=== PATIENT | male | born 1935 | race Caucasian/White ===

== ENCOUNTER 2023-05-19 07:59 | Outpatient (AMB) | payer OTHER, SELFPAY ==
--- NOTE | 2023-05-19 08:04 | MHC.OFFWIV ---
Intake Vital Signs 05/19/23 08:07 BP 150/100 H Blood Pressure Location Lt brachial Position Sitting Pulse 91 Pulse Source Pulse Oximeter Temp 98.4 F Temp Source Temporal Artery Scan Pulse Oximetry (%) 96 Oxygen Delivery Method Room Air Intake Visit Reasons: EST/left ankle sore Intake Note: Patient here for left ankle sore which started about 4 days ago. Pt states it was leaking but daughter put some ointment on it. Patient Tobacco Use Status: Never used Tobacco Allergies No Known Allergies [No Known Allergies*] Allergy (Unverified 05/19/23 08:38) lisinopril Allergy (Unknown, Uncoded 05/19/23 08:38) skin rash Do you need a note to return to daycare/school/sports/work: No HPI EST/left ankle sore HPI Details 87-year-old male presents to the office for a sick visit. Patient reports swelling in the left leg with leaking. He has not seen his primary care provider in 3 years. He reports constant swelling and leaking the left leg for the past 3 months. Occasional discomfort. No fevers or chills. PFSH Social History Patient Tobacco Use Status: Never used Tobacco Physical Exam Vital Signs: Last Vital Signs Temp 98.4 F 05/19/23 08:07 Pulse 91 05/19/23 08:07 BP 150/100 H 05/19/23 08:07 Pulse Ox 96 05/19/23 08:07 Oxygen Delivery Method Room Air 05/19/23 08:07 Const General: cooperative and healthy appearing Nutritional Appearance: well nourished Orientation/consciousness: patient oriented x3 Limitations: no limitations HEENT Head: Yes normal to inspection Eyes General: appearance normal, both eyes and all related structures Neck Neck: Yes normal visual inspection Chest Chest palpation & inspection: normal palpation of entire chest wall Resp Effort & Inspection: normal respiratory effort Neuro General: patient oriented x3 Extrem Other: Left leg lower: weeping lesions on the side of the leg, minimal erythema. Assessment & Plan Assessment & Plan (1) Cellulitis, leg: Code(s): L03.119 - Cellulitis of unspecified part of limb Plan: Antibiotics called in. Keep the leg elevated. Elevated blood pressure noted. Patient was encouraged to see the primary care provider. Coding Level of Care Code Est Pt Level 3 (88137) Diagnoses Cellulitis, leg L03.119
[2023-05-19 08:07] VITALS: BP 150/100; PULSE 91; TEMP 36.9; O2SAT 96
== END 2023-05-19 09:28 | disposition home or self-care (01) ==
PROVIDERS: PCP Nurse Practitioner Family; Visit Provider Internal Medicine
DX: L03.119 Cellulitis of unspecified part of limb (principal)
CPT/HCPCS: 99213

== ENCOUNTER 2023-06-04 08:20 | Emergency (ER) | payer OTHER, SELFPAY ==
--- NOTE | ~2023-06-04 | US_ITS ---
EXAMINATION: US VENOUS ULTRASOUND WITH DOPPLER LOWER EXTREMITY, BILATERAL CLINICAL INFORMATION: Lower extremity swelling. COMPARISON: None available. TECHNIQUE: Ultrasound of the deep veins is performed from the hip to the calf with compression sonography and color and pulse Doppler assessment. Spectral analysis with color-flow imaging is performed. There is some limitation at several levels secondary to the patient's inability to tolerate compression. FINDINGS: RIGHT: There is normal venous compression and respiratory variation and augmented flow. The visualized common femoral vein, superficial femoral vein, profunda femoral vein, popliteal vein, and the trifurcation region shows no evidence of deep venous thrombosis. There is no significant popliteal fossa cyst. Mild subcutaneous edema in the calf. LEFT: There is normal venous compression and respiratory variation and augmented flow. The visualized common femoral vein, superficial femoral vein, profunda femoral vein, popliteal vein, and the trifurcation region shows no evidence of deep venous thrombosis. There is no significant popliteal fossa cyst. Mild subcutaneous edema in the calf. If the patient's symptoms persist, followup ultrasound in 5 days 7 days might be of value to exclude proximal propagation from a non-visualized calf vein. US/US venous duplex LE BI IMPRESSION: No evidence for deep venous thrombosis in the visualized veins of the bilateral lower extremities.
--- NOTE | ~2023-06-04 | XR_ITS ---
EXAMINATION: XR CHEST CLINICAL INFORMATION: Leg swelling. COMPARISON: 03/19/2019 chest radiographs. TECHNIQUE: 2 views of the chest were obtained. FINDINGS: Mild to moderate elevation of the right hemidiaphragm. The lungs are clear. There are no pleural effusions. The heart and mediastinal structures are unremarkable. XR/XR chest 2V IMPRESSION: No acute cardiopulmonary process.
[2023-06-04 08:21] VITALS: BP 185/86; PULSE 98; RESP 18; TEMP 36.7; O2SAT 93; BMI 31.5
--- NOTE | 2023-06-04 09:36 | ECG_ITS ---
Test Reason : Dizzziness Blood Pressure : / mmHG Vent. Rate : 084 BPM Atrial Rate : 084 BPM P-R Int : 194 ms QRS Dur : 074 ms QT Int : 376 ms P-R-T Axes : 049 -10 047 degrees QTc Int : 444 ms Normal sinus rhythm Nonspecific ST and T wave abnormality Abnormal ECG When compared with ECG of 02-DEC-2013 07:28, No significant change was found Referred By: Johanne Vaz Electronically Signed By:GISELE HUSAIN
--- NOTE | 2023-06-04 09:38 | ED_ITS ---
HPI - General Adult General Chief complaint: Dizziness Stated complaint: Dizzy Low Blood Pressure Time Seen by Provider: 06/04/23 08:55 Source: patient Mode of arrival: ambulatory Limitations: no limitations History of Present Illness HPI narrative: 87-year-old male with a history of hypertension presents the ER with multiple complaints. Her patient and his the patient has not seen a primary care doctor and over 8 years. He has had complaints of lower extremity swelling for several weeks. He had a wound on the left lower extremity and went to urgent care and was placed on 7 days of Bactrim. Patient completed the course of Bactrim and does feel like the wound has improved. He still does have bilateral lower extremity swelling left greater than right. Patient also feels lightheaded and dizzy when he changes positions over the last few weeks. None at rest. Patient reports some shortness of breath with moving around but none with lying flat or at night time. Intermittent cough. No chest pain, fevers, chills. Has initial appt with new PCP in september Related Data Home Medications Medication Instructions Recorded Confirmed aspirin 81 mg tablet,delayed 81 mg PO DAILY 05/19/23 release (Adult Low Dose Aspirin) Previous Rx's Medication Instructions Recorded irbesartan 150 1 tab PO DAILY #90 tabs 04/26/21 mg-hydrochlorothiazide 12.5 mg tablet sulfamethoxazole 800 1 tab PO BID 7 days #14 tabs 05/19/23 mg-trimethoprim 160 mg tablet (Bactrim DS) irbesartan 150 1 tab PO DAILY #30 tabs 06/04/23 mg-hydrochlorothiazide 12.5 mg tablet Allergies Allergy/AdvReac Type Severity Reaction Status Date / Time No Known Allergies Allergy Unverified 05/19/23 08:38 [No Known Allergies*] lisinopril Allergy Unknown skin rash Uncoded 05/19/23 08:38 Review of Systems Review of Systems: Yes all other systems are reviewed and are negative Constitutional: Constitutional: Reports no additional constitutional complaints, Denies body ache(s), Denies chills, Denies fever(s), Denies headache(s) and Denies weakness Eyes: Eyes: Reports no additional eye complaints and Denies change in vision ENT: Reports system reviewed and no additional complaints, except as documented, Reports dizziness, Denies headache(s), Denies nasal congestion, Denies nasal discharge and Denies neck pain Cardiovascular: Cardiovascular: Reports no additional cardiovascular complaints, Denies chest pain, Reports leg edema and Reports dyspnea Respiratory: Respiratory: Reports no additional respiratory complaints, Denies cough and Reports dyspnea Gastrointestinal: Gastrointestinal: Reports no additional gastrointestinal complaints, Denies abdominal pain, Denies diarrhea, Denies nausea and Denies vomiting Genitourinary: Genitourinary: Denies urinary incontinence Musculoskeletal: Musculoskeletal: Reports no additional musculoskeletal complaints, Denies back pain, Denies arthralgias, Denies joint swelling, Denies neck pain, Denies numbness and Denies tingling Integumentary/Breasts: Skin/Breast: Reports system reviewed and no additional complaints, except as docu and Denies rash Neurologic: Reports system reviewed and no additional complaints, except as documented, Reports dizziness, Denies headache(s), Denies numbness, Denies tingling and Denies weakness PMFSH Past Medical History Attestation statement: The following information was validated with the patient. Source: old records reviewed and nursing notes reviewed Social History Social History Patient Tobacco Use Status: Never used Tobacco Smoked in Last 30 Days: No Use of substances other than those prescribed or required for medical reasons: No Advance Directives: No Advance Directives Information Provided: No Physical Exam ED Vital Signs: Vital Signs - 24 hr 06/04/23 08:21 06/04/23 10:13 06/04/23 10:14 Temperature 98.0 F Pulse Rate 98 78 78 Respiratory Rate 18 18 Blood Pressure 185/86 H 173/88 H 175/89 H Pulse Oximetry 93 94 Oxygen Delivery Method Room Air Room Air 06/04/23 10:15 06/04/23 10:17 Temperature Pulse Rate 82 84 Respiratory Rate Blood Pressure 178/84 H 179/82 H Pulse Oximetry Oxygen Delivery Method BMI result Body Mass Index 31.5 Const General: cooperative, healthy appearing, comfortable and no acute distress Orientation/consciousness: patient oriented x3 Limitations: no limitations HENMT Head: Yes normal to inspection Ears: hearing grossly normal bilaterally Eyes General: appearance normal, both eyes and all related structures Pupils: Equal, round and reactive pupils present Neck Neck: Yes normal visual inspection and Yes full ROM Chest Chest palpation & inspection: normal inspection of the chest Resp Effort & Inspection: normal respiratory effort Auscultation: clear to auscultation bilaterally Cardio Rate: regular rate Rhythm: regular rhythm Peripheral pulses: Peripheral pulses 2+ throughout GI Inspection: Yes normal to inspection Palpation (GI): Soft to palpation and nontender Back/Spine/Pelvis Thoracic/Lumbar Spine: thoracic and lumbar spine normal to inspection Skin General skin exam: no rashes or lesions noted Neuro General: patient oriented x3, moves all extremities and Unable to assess gait Cranial nerves: Yes Equal, round and reactive pupils present, Yes Normal facial strength present and Yes Midline tongue present Cognition (Neuro): normal cognition Gait exam (Neuro): Unable to assess gait Motor exam (neuro): 5/5 motor strength present throughout Sensory Exam: Normal double simultaneous stimulation for sensation Coordination: [id number] test normal and [id number] test normal Extrem Other: Has bilateral lower extremity pitting edema left greater than right. He has normal DP and PT pulses on palpation. Normal sensation. He has chronic skin changes likely secondary to chronic venous insufficiency. He has a healed ulceration to the left lower lateral extremity Course Course Course Narrative: Labs are unremarkable. Venous ultrasound shows no signs of DVT. Chest x-ray shows no signs of fluid overload. Patient likely has chronic venous insufficiency. Patient can elevate his lower legs and use compression stockings at home. His orthostatic vital signs were negative. His neurological exam is nonfocal and patient is ambulatory at baseline. Low concern for ICH, cerebellar infarct. Case management did see the patient and they will be assisting the patient in the status tse a primary care doctor outpatient. Patient will be discharged home. I will give him 1 refill for his blood pressure medication. Did review worrisome signs and symptoms of when to return to the emergency room. Comf ortable plan for discharge home. Medical Decision Making Medical Decision Making [facility] Narrative: 87-year-old male with a reported history of hypertension has not seen a primary care doctor and more than 9 years presents the ER with several weeks of bilateral lower extremity swelling, shortness of breath, feeling dizzy and lightheaded with position changes. On exam patient is alert oriented. Normal neurological exam with no focal deficits. Patient has bilateral lower extremity swelling left greater than right with chronic skin changes likely secondary to chronic venous insufficiency. Healed ulceration seen the left lateral lower extremity. Lungs are clear. Will check labs, chest x-ray, EKG, venous ultrasound, orthostatic vital signs Differential Diagnosis Differential Diagnoses: The differential diagnosis associated with the presentation includes Orthostatic hypotension Dehydration Congestive heart failure DVT Venous insufficiency Lab Data MDM Lab Attestation statement: I reviewed the patient's lab results. Reviewed labs which are unremarkable 06/04/23 09:54 06/04/23 09:54 Labs: Lab Results 06/04/23 06/04/23 06/04/23 Range/Units 09:54 09:54 09:54 WBC 6.6 (4.8-10.8) X10*3/uL RBC 4.69 (4.60-5.80) X10*6/uL Hgb 14.0 (14.0-18.0) g/dl Hct 42.3 (42.0-52.0) % MCV 90.2 (80.0-98.0) fL MCH 29.9 (27.0-33.0) pg MCHC 33.1 (31.0-36.0) g/dl RDW 13.3 (11.0-16.0) % Plt Count 159 L (160-400) X10*3/uL MPV 9.1 L (9.4-12.4) fL Immature Gran % (Auto) 0.9 H (0.0-0.4) % Neut % (Auto) 64.3 (45-73) % Lymph % (Auto) 24.1 (20-40) % Graves % (Auto) 9.3 (2-11) % Eos % (Auto) 1.1 (0-4) % Baso % (Auto) 0.3 (0-2) % Lymph # (Auto) 1.6 (1.2-4.9) X10*3/uL Graves # (Auto) 0.6 (0.1-1.2) X10*3/uL Eos # (Auto) 0.1 (0.0-0.4) X10*3/uL Baso # (Auto) 0.0 (0.0-0.2) X10*3/uL Abs Immat Gran (auto) 0.06 H (0.00-0.03) X10*3/uL Absolute Neuts (auto) 4.2 (2.0-8.3) x10*3/uL Absolute Nucleated RBC 0.000 (0.0-0.012) X10*3/uL Nucleated RBC % (auto) 0.0 (0.0-0.2) /100WBC PT 11.3 (11.1-13.3) SEC INR 0.9 (0.9-1.1) Sodium 144 (135-145) mmol/L Potassium 4.0 (3.3-5.1) mmol/L Chloride 110 H (96-108) mmol/L Carbon Dioxide 26 (22-29) mmol/L Anion Gap 12 (12-20) BUN 28 H (9-16) mg/dL Creatinine 1.04 (0.5-1.4) mg/dL Estim Creat Clear Calc 58.4 Estimated GFR > 60 Random Glucose 110 (60-115) mg/dL Calcium 9.4 (8.4-10.2) mg/dL Magnesium 1.9 (1.6-2.6) mg/dL Total Bilirubin 0.4 (0.0-1.0) mg/dL Direct Bilirubin 0.1 (0.0-0.5) mg/dL AST 15 (5-37) U/L ALT 18 (0-40) U/L Alkaline Phosphatase 72 (39-117) U/L Troponin I High Sens (<3.5-35.0) ng/L B-Natriuretic Peptide (<100) pg/mL Total Protein 6.5 (6.5-8.0) g/dL Albumin 3.9 (3.5-5.0) g/dL Urine Color Urine Appearance Urine pH (5.0-9.0) Ur Specific Keeler (1.005-1.025) Urine Protein (Neg-Trace) mg/dL Urine Glucose (UA) (Negative) mg/dL Urine Ketones (Negative) mg/dL Urine Blood (Negative) Urine Nitrite (Negative) Ur Leukocyte Esterase (Negative) 06/04/23 06/04/23 06/04/23 Range/Units 09:54 09:54 11:00 WBC (4.8-10.8) X10*3/uL RBC (4.60-5.80) X10*6/uL Hgb (14.0-18.0) g/dl Hct (42.0-52.0) % MCV (80.0-98.0) fL MCH (27.0-33.0) pg MCHC (31.0-36.0) g/dl RDW (11.0-16.0) % Plt Count (160-400) X10*3/uL MPV (9.4-12.4) fL Immature Gran % (Auto) (0.0-0.4) % Neut % (Auto) (45-73) % Lymph % (Auto) (20-40) % Graves % (Auto) (2-11) % Eos % (Auto) (0-4) % Baso % (Auto) (0-2) % Lymph # (Auto) (1.2-4.9) X10*3/uL Graves # (Auto) (0.1-1.2) X10*3/uL Eos # (Auto) (0.0-0.4) X10*3/uL Baso # (Auto) (0.0-0.2) X10*3/uL Abs Immat Gran (auto) (0.00-0.03) X10*3/uL Absolute Neuts (auto) (2.0-8.3) x10*3/uL Absolute Nucleated RBC (0.0-0.012) X10*3/uL Nucleated RBC % (auto) (0.0-0.2) /100WBC PT (11.1-13.3) SEC INR (0.9-1.1) Sodium (135-145) mmol/L Potassium (3.3-5.1) mmol/L Chloride (96-108) mmol/L Carbon Dioxide (22-29) mmol/L Anion Gap (12-20) BUN (9-16) mg/dL Creatinine (0.5-1.4) mg/dL Estim Creat Clear Calc Estimated GFR Random Glucose (60-115) mg/dL Calcium (8.4-10.2) mg/dL Magnesium (1.6-2.6) mg/dL Total Bilirubin (0.0-1.0) mg/dL Direct Bilirubin (0.0-0.5) mg/dL AST (5-37) U/L ALT (0-40) U/L Alkaline Phosphatase (39-117) U/L Troponin I High Sens 13.7 (<3.5-35.0) ng/L B-Natriuretic Peptide 62 (<100) pg/mL Total Protein (6.5-8.0) g/dL Albumin (3.5-5.0) g/dL Urine Color Yellow Urine Appearance Clear Urine pH 6.5 (5.0-9.0) Ur Specific Keeler 1.020 (1.005-1.025) Urine Protein Trace (Neg-Trace) mg/dL Urine Glucose (UA) Negative (Negative) mg/dL Urine Ketones Negative (Negative) mg/dL Urine Blood Negative (Negative) Urine Nitrite Negative (Negative) Ur Leukocyte Esterase Negative (Negative) Independent Interpretation I performed an independent interpretation of an: EKG, Plain X-Ray and Ultrasound Interpretation: I independently reviewed EKG was no some a sinus rhythm with a rate of 84, normal NC, nonspecific ST changes I independently reviewed the chest x-ray and ultrasound and agree with the Radiology report Radiology Impression Discussion of test interpretation with radiology: I have reviewed the radiologis t's reading. Radiologist Impression: [address] [address] XRay Report Signed Patient: Jesus Alberto Godinez MR#: [id number] : 1935 Acct:[id number] Age/Sex: 87 / M ADM Date: 06/04/23 Loc: .ED Attending Dr: Ordering Physician: Johanne Silva NP Date of Service: 06/04/23 Procedure(s): XR chest 2V Accession Number(s): [id number] cc: Johanne Silva NP~ EXAMINATION: XR CHEST CLINICAL INFORMATION: Leg swelling. COMPARISON: 03/19/2019 chest radiographs. TECHNIQUE: 2 views of the chest were obtained. FINDINGS: Mild to moderate elevation of the right hemidiaphragm. The lungs are clear. There are no pleural effusions. The heart and mediastinal structures are unremarkable. XR/XR chest 2V IMPRESSION: No acute cardiopulmonary process. Launch?Image [address] [address] Ultrasound Report Signed Patient: Jesus Alberto Godinez MR#: [id number] : 1935 Acct:[id number] Age/Sex: 87 / M ADM Date: 06/04/23 Loc: .ED Attending Dr: Ordering Physician: Johanne Silva NP Date of Service: 06/04/23 Procedure(s): US venous duplex LE BI Accession Number(s): [id number] cc: Johanne Silva NP~ EXAMINATION:? US VENOUS ULTRASOUND WITH DOPPLER LOWER EXTREMITY, BILATERAL CLINICAL INFORMATION:? Lower extremity swelling. COMPARISON:? None available. TECHNIQUE: Ultrasound of the deep veins is performed from the hip to the calf with compression sonography and color and pulse Doppler assessment. Spectral analysis with color-flow imaging is performed. There is some limitation at several levels secondary to the patient's inability to tolerate compression. FINDINGS: RIGHT: There is normal venous compression and respiratory variation and augmented flow. The visualized common femoral vein, superficial femoral vein, profunda femoral vein, popliteal vein, and the trifurcation region shows no evidence of deep venous thrombosis. ? There is no significant popliteal fossa cyst. Mild subcutaneous edema in the calf. LEFT: There is normal venous compression and respiratory variation and augmented flow. The visualized common femoral vein, superficial femoral vein, profunda femoral vein, popliteal vein, and the trifurcation region shows no evidence of deep venous thrombosis. ? There is no significant popliteal fossa cyst. Mild subcutaneous edema in the calf. If the patient's symptoms persist, followup ultrasound in 5 days 7 days might be of value to exclude proximal propagation from a non-visualized calf vein. US/US venous duplex LE BI IMPRESSION: No evidence for deep venous thrombosis in the visualized veins of the bilateral lower extremities. Independent Historian Clinical information obtained from an independent historian. History obtained from or confirmed by: Spouse Clinical information was obtained from and confirm with the white Discharge Plan Discharge Clinical Impression: Chronic venous insufficiency Patient Disposition: Home, Self-Care Instructions: Venous Insufficiency (DC) Additional Instructions: Elevate the lower legs Buy compression stockings and wear these daily Continue with plan to establish a primary care doctor Labs are unremarkable. Ultrasound shows no evidence of blood clots. Prescriptions: New irbesartan-hydrochlorothiazide 150-12.5 mg tablet 1 tab PO DAILY Qty: 30 1RF No Action irbesartan-hydrochlorothiazide 150-12.5 mg tablet 1 tab PO DAILY Qty: 90 3RF aspirin [Adult Low Dose Aspirin] 81 mg tablet,delayed release (DR/EC) 81 mg PO DAILY sulfamethoxazole-trimethoprim [Bactrim DS] 800-160 mg tablet 1 tab PO BID 7 Days Qty: 14 0RF Referrals: Physician,Unknown J [Primary Care Provider] - 1 week
[2023-06-04 10:00] LABS: MANUAL DIFF FLAG NO
[2023-06-04 10:03] LABS: Basophils Percent Auto 0.3 % (0-2); Eosinophils Absolute Auto 0.1 X10*3/uL (0.0-0.4); Eosinophils Percent Auto 1.1 % (0-4); Hematocrit 42.3 % (42.0-52.0); Imm Gran Abs Auto 0.06 X10*3/uL (0.00-0.03); Imm Gran Pct Auto 0.9 % (0.0-0.4); Lymphocytes Absolute Auto 1.6 X10*3/uL (1.2-4.9); Lymphocytes Percent Auto 24.1 % (20-40); Mean Corpuscular HGB Conc 33.1 g/dl (31.0-36.0); Mean Corpuscular Hemoglobin 29.9 pg (27.0-33.0); Mean Corpuscular Volume 90.2 fL (80.0-98.0); Mean Platelet Volume 9.1 fL (9.4-12.4); Monocytes Absolute Auto 0.6 X10*3/uL (0.1-1.2); Monocytes Percent Auto 9.3 % (2-11); Neutrophils Absolute Auto 4.2 x10*3/uL (2.0-8.3); Neutrophils Percent Auto 64.3 % (45-73); Platelet Count 159 X10*3/uL (160-400); Red Blood Count 4.69 X10*6/uL (4.60-5.80); Red Cell Distribution Width 13.3 % (11.0-16.0); White Blood Count 6.6 X10*3/uL (4.8-10.8)
[2023-06-04 10:10] LABS: INTERNATIONAL NORM RATIO 0.9 (0.9-1.1); Prothrombin Time 11.3 SEC (11.1-13.3)
[2023-06-04 10:13] VITALS: BP 173/88; PULSE 78; RESP 18; O2SAT 94
[2023-06-04 10:14] VITALS: BP 175/89; PULSE 78
[2023-06-04 10:15] VITALS: BP 178/84; PULSE 82
[2023-06-04 10:16] LABS: Alanine Aminotransferase 18 U/L (0-40); Albumin Level 3.9 g/dL (3.5-5.0); Alkaline Phosphatase 72 U/L (39-117); Anion Gap 12 (12-20); Aspartate Amino Transferase 15 U/L (5-37); Bilirubin Direct 0.1 mg/dL (0.0-0.5); Bilirubin Total 0.4 mg/dL (0.0-1.0); Blood Urea Nitrogen 28 mg/dL (9-16); Calcium 9.4 mg/dL (8.4-10.2); Carbon Dioxide 26 mmol/L (22-29); Chloride 110 mmol/L (96-108); Creatinine Clr Calc Pharmacy 58.4; Estimated Glomerular Filt Rate > 60; Glucose Random 110 mg/dL (60-115); Magnesium 1.9 mg/dL (1.6-2.6); Sodium 144 mmol/L (135-145); Total Protein 6.5 g/dL (6.5-8.0)
[2023-06-04 10:17] VITALS: BP 179/82; PULSE 84
--- NOTE | 2023-06-04 10:20 | PC.NURSE ---
pt a&o x4, pleasant, calm, and cooperative. at bedside. 20G IV placed to the left forearm, labs drawn, EKG obtained, orthostatic blood pressures documented. awaiting UA pt resting quietly on stretcher in no apparent distress. call vizcaino within pt reach. all needs met at this time
[2023-06-04 10:21] LABS: B Type Natriuretic Peptide 62 pg/mL (<100)
[2023-06-04 10:22] LABS: Troponin-I High Sensitivity 13.7 ng/L (<3.5-35.0)
--- NOTE | 2023-06-04 10:25 | MHC.CM.PN ---
CM CONSULT RECEIVED PT HAS A NEW PT APPT WITH DR STARKEY IN SEPTEMBER, HOWEVER HOPES THIS CAN BE MOVED UP PARTS ADVISOR WILL CALL THE OFFICE TO DETERMINE IF THEY CAN OFFER A SOONER APPT
[2023-06-04 11:12] LABS: Appearance Urine Clear; Color Urine Yellow; Glucose Urine UA Negative (Negative); Leukocyte Esterase Urine Negative (Negative); Nitrite Urine Negative (Negative); PH 6.5 (5.0-9.0); Urine Blood Negative (Negative); Urine Ketones Negative (Negative); Urine Protein Trace mg/dL (Neg-Trace)
== END 2023-06-04 13:23 | disposition home or self-care (01) ==
PROVIDERS: Nurse Practitioner Family; Emergency Provider Emergency Medicine
DX: I87.2 Venous insufficiency (chronic) (peripheral) (principal); R42 Dizziness and giddiness; R60.0 Localized edema; R94.31 Abnormal electrocardiogram [ECG] [EKG]; R06.02 Shortness of breath; Z79.899 Other long term (current) drug therapy
CPT/HCPCS: 36415; 71046; 80048; 80076; 81003; 83735; 83880; 84484; 85025; 85610; 93005; 93970; 99285

== ENCOUNTER 2023-06-05 15:07 | Inpatient (IN) | payer OTHER, SELFPAY ==
[2023-06-05] VITALS (10 sets, daily range): BP systolic 165–213; BP diastolic 76–111; PULSE 73–87; RESP 15–23; TEMP 36.4–37.1; O2SAT 94–98; BMI 31.9
--- NOTE | ~2023-06-05 | CT_ITS ---
EXAMINATION: CT HEAD WITHOUT CONTRAST CLINICAL INFORMATION: Dizzy. Speech issues. Off balance. COMPARISON: None. TECHNIQUE: Contiguous axial imaging was performed from the skull base to vertex without intravenous administration of contrast. This CT examination was performed using dose optimization techniques as appropriate, variously including the following: *Automated exposure control *Adjustment of mA and/or kV according to patient size (this includes techniques or standardized protocols for targeted exams where dose is matched to indication/reason for exam; i.e. extremities or head) *Use of iterative reconstruction technique DLP: 792 mGy-cm. FINDINGS: There is no intracranial hemorrhage, extra-axial collection, mass effect, or acute large territorial infarction. There is chronic infarct within the left middle cerebral artery vascular territory involving the frontal lobe, insula, and operculum. Small chronic appearing infarcts are seen within the right frontal lobe deep white matter and right upper basal ganglia. Mild to moderate chronic microangiopathic changes are seen in the white matter and central samson. There is mild degree of brain parenchymal volume loss with commensurate prominence of the ventricles and sulci. The extra cranial structures are unremarkable. There is mild paranasal sinus mucosal thickening without fluid levels. CT/CT head/brain wo IV con IMPRESSION: No acute intracranial abnormality identified. 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 Small chronic appearing infarcts in the right frontal lobe deep white matter and right basal ganglia. 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
--- NOTE | ~2023-06-05 | MR_ITS ---
EXAMINATION: MR BRAIN WITHOUT CONTRAST CLINICAL INFORMATION: Rule out CVA COMPARISON: Same day CT head without contrast TECHNIQUE: Multiplanar multisequence MR imaging of the brain was obtained without intravenous contrast. FINDINGS: There are multiple punctate and small infarcts in the right cerebral hemisphere involving the cortex and deep and periventricular white matter of the right frontal, parietal, and occipital lobes which are oriented in a paramidline location and may reflect sequela of watershed ischemia or embolic infarcts. There are several foci of hyperintense signal on diffusion-weighted imaging in the left cerebral hemisphere involving the left frontal lobe and centrum semiovale without definite ADC correlate, favored to reflect T2 shine through. There is no intracranial hemorrhage on iron-sensitive imaging. No extra-axial collection or mass effect/herniation. Patchy periventricular and deep white matter T2 FLAIR hyperintensities consistent with mild to moderate underlying microangiopathy. Chronic left frontal lobe infarct. No hydrocephalus. Mild generalized cerebral volume loss with commensurate sulcal and ventricular prominence. The major flow voids at the skull base are preserved. The midline structures are normal. The cerebellar tonsils are normally positioned. The craniocervical junction is normal. Marrow signal is within normal limits. The visualized soft tissues are without significant abnormality. Mild ethmoid and left maxillary sinus mucosal thickening. MR/MR head/brain wo con IMPRESSION: 1. Multiple punctate and small acute infarcts in the right cerebral hemisphere which may reflect sequela of watershed ischemia and/or embolic phenomenon. 2. Chronic left frontal lobe infarct and mild to moderate chronic microangiopathy.
--- NOTE | ~2023-06-05 | CT_ITS ---
EXAMINATION: CT angiogram neck CT angiogram head CLINICAL INFORMATION: Evaluate for stroke. Follow-up. COMPARISON: Brain MRI 06/05/2023. CT head 06/05/2023. TECHNIQUE: Audit Clerks Supervisor images were obtained. A CT angiogram of the head and neck was performed in the arterial phase after the intravenous administration of 70 mL Omnipaque 350. Pre and delayed postcontrast images of the head were also obtained. 3D images were processed on an independent workstation under concurrent supervision. Arterial stenoses are measured in accordance with NASCET criteria or similar method if applicable. This CT examination was performed using dose optimization techniques as appropriate, including one or more of the following: Automated exposure control, iterative reconstruction, and adjustment of technique factors (mA and/or kVp) according to patient size (this includes techniques or standardized protocols for targeted exams where dose is matched to indication/reason for exam). Fleischner Society criteria for the followup of incidental pulmonary nodules was implemented if appropriate. Total exam dose-length product 2986 mGy-cm FINDINGS: Head: There is no acute intracranial hemorrhage or abnormal extra-axial collection. Postcontrast images reveal no abnormal intracranial mass or enhancement. No intracranial mass effect or hydrocephalus. 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 Scattered nonspecific foci of hypoattenuation are also visualized within the periventricular white matter that most likely represent a chronic manifestation of small vessel ischemia. The calvarium and skull base are intact. Mastoid air cells and middle ear cavities are well aerated. Mild to moderate paranasal sinus disease primarily affecting the ethmoid air cells in the alveolar recesses of the maxillary sinuses. There are a few retention cysts within the left maxillary sinus. CT angiogram neck: Scattered atheromatous calcification involves the aortic arch apex. Origins of the major aortic branches are patent. Common carotid arteries are normal. Partially calcified predominantly lipid-laden atheromatous plaque causes 90% stenosis at the origins of both internal carotid arteries. Cervical vertebral arteries are patent. CT angiogram head: There is mild irregular narrowing involving the supraclinoid segment of the right internal carotid artery. Intracranial internal carotid arteries are otherwise patent. Intradural vertebral artery segments and basilar artery are patent. There is moderate segmental narrowing involving the A2 and A3 segments of the anterior cerebral arteries. Mild irregular narrowing involving both middle and posterior cerebral artery complexes. No intracranial large vessel occlusion. Other: Soft tissues of the neck including the thyroid gland are normal. No pathologically enlarged cervical lymph nodes. There is multilevel degenerative spondylosis of the cervical spine. Grossly no spinal canal compromise. Uncovertebral joint spurring and conjunction with facet degenerative change causes varying degrees of neuroforaminal encroachment. Lung apices are clear. CT/CT angio head neck IMPRESSION: Partially calcified predominantly lipid-laden atheromatous plaque causes 90% stenosis at the origins of both internal carotid arteries and there is mild tandem narrowing within the supraclinoid segment of the right internal carotid artery. Cervical vertebral arteries are patent. There is moderate segmental narrowing involving the A2 and A3 segments of the anterior cerebral arteries. Mild irregular narrowing involving both middle and posterior cerebral artery complexes. No intracranial large vessel occlusion. 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 No evidence of acute territorial infarct or hemorrhage. No abnormal intracranial mass or enhancement.
--- NOTE | 2023-06-05 15:14 | ED_ITS ---
HPI - General Adult General Chief complaint: General Medical Stated complaint: weakness Time Seen by Provider: 06/05/23 15:45 Source: patient and family Mode of arrival: ambulatory Limitations: no limitations History of Present Illness HPI narrative: 87-year-old male came in by family for a concern of multiple complaints. Patient's symptoms started few weeks ago which is gradually getting worse over the last 2 weeks of periods of confusion, slurred speech that appear to be on and off for the past 2 weeks, and unsteady gait, patient also been having decreased activity, noticed to have significant exertional dyspnea, no orthopnea, no PND. No fever, no chills, no head trauma or falls. Patient is known to have high blood pressure for many years and patient is not compliant with hydrochlorothiazide. Related Data Home Medications Medication Instructions Recorded Confirmed aspirin 81 mg tablet,delayed 81 mg PO DAILY 05/19/23 release (Adult Low Dose Aspirin) Previous Rx's Medication Instructions Recorded irbesartan 150 1 tab PO DAILY #90 tabs 04/26/21 mg-hydrochlorothiazide 12.5 mg tablet sulfamethoxazole 800 1 tab PO BID 7 days #14 tabs 05/19/23 mg-trimethoprim 160 mg tablet (Bactrim DS) irbesartan 150 1 tab PO DAILY #30 tabs 06/04/23 mg-hydrochlorothiazide 12.5 mg tablet Allergies Allergy/AdvReac Type Severity Reaction Status Date / Time No Known Allergies Allergy Unverified 05/19/23 08:38 [No Known Allergies*] lisinopril Allergy Unknown skin rash Uncoded 05/19/23 08:38 Review of Systems Review of Systems: All other systems are reviewed and are negative Constitutional: Reports as per HPI and Reports no additional constitutional complaints Eyes: Reports as per HPI and Reports no additional eye complaints Reports system reviewed and no additional complaints, except as documented Cardiovascular: Reports as per HPI and Reports no additional cardiovascular complaints Respiratory: Reports as per HPI and Reports no additional respiratory complaints Gastrointestinal: Reports as per HPI and Reports no additional gastrointestinal complaints Genitourinary: Reports no additional female genitourinary complaints Musculoskeletal: Reports no additional musculoskeletal complaints Skin/Breast: Reports system reviewed and no additional complaints, except as docu Psychiatric: Reports no additional psychiatric complaints Endocrine: Reports no additional endocrine complaints Hematologic/Lymphatic: Reports no additional hematologic/lymphatic complaints Allergic/Immunologic: Reports no additional allergic/immunologic complaints Reports system reviewed and no additional complaints, except as documented and Reports Abnormal speech present [facility] Social History Social History Alcohol intake: never Patient Tobacco Use Status: Never used Tobacco Smoked in Last 30 Days: No Use of substances other than those prescribed or required for medical reasons: No Physical Exam ED Vital Signs: Vital Signs - 24 hr 06/05/23 15:14 06/05/23 16:04 06/05/23 16:19 Temperature 98.8 F 98.4 F Pulse Rate 78 78 73 Respiratory Rate 16 22 H Blood Pressure 213/94 H 187/111 H 179/94 H Pulse Oximetry 95 96 Oxygen Delivery Method Room Air Room Air 06/05/23 16:19 06/05/23 16:20 Temperature Pulse Rate 77 76 Respiratory Rate Blood Pressure 181/96 H 197/95 H Pulse Oximetry Oxygen Delivery Method BMI result Body Mass Index 31.9 Course Course Course Narrative: RME: 87-year-old male with a history of hypertension presents the ED c/o head pressure, dizziness, hand numbness, unsteady gait, and delayed speech x2 weeks worsening today. Patient was seen & tx in the ED yesterday, had unremarkable labs, CXR & venous duplex US, however state they didn't address the balance/speech, or was not mentioned. On ASA HTNsive 213/94 in triage >admits took his BP meds this AM. EKG, Labs, UA, Head CT, orthoststics ordered Full HPI, ROS and PE to be performed by primary ED provider. Reevaluation(s) Reevaluation #1: 87-year-old male history of hypertension patient noncompliant with hydrochloro thiazide at home came in for 2 weeks of confusion, slurred speech, unsteady gait, exertional dyspnea. Patient was seen by Dr. Stephenson in the emergency department recommended to keep the patient, control blood pressure, consider MRI as an inpatient. Time: 16:57 Medical Decision Making Differential Diagnosis Differential Diagnoses: The differential diagnosis associated with the presentation includes (Hypertensive urgency, ischemic stroke, hemorrhagic stroke, electrolyte abnormality, severe anemia.) Admission/Observation Consideration of admission/observation: Escalation of care including admission/observation considered Consult Healthcare Provider Management of the patient was discussed with: Hospitalist (Dr. Camacho) Lab Data [facility] Lab Attestation statement: I reviewed the patient's lab results. 06/05/23 15:41 06/05/23 15:41 Labs: Lab Results 06/05/23 06/05/23 06/05/23 Range/Units 15:41 15:41 15:41 WBC 6.6 (4.8-10.8) X10*3/uL RBC 4.63 (4.60-5.80) X10*6/uL Hgb 14.1 (14.0-18.0) g/dl Hct 42.5 (42.0-52.0) % MCV 91.8 (80.0-98.0) fL MCH 30.5 (27.0-33.0) pg MCHC 33.2 (31.0-36.0) g/dl RDW 13.3 (11.0-16.0) % Plt Count 156 L (160-400) X10*3/uL MPV 9.1 L (9.4-12.4) fL Immature Gran % (Auto) 1.4 H (0.0-0.4) % Neut % (Auto) 59.0 (45-73) % Lymph % (Auto) 27.3 (20-40) % [place] % (Auto) 10.4 (2-11) % Eos % (Auto) 1.4 (0-4) % Baso % (Auto) 0.5 (0-2) % Lymph # (Auto) 1.8 (1.2-4.9) X10*3/uL [place] # (Auto) 0.7 (0.1-1.2) X10*3/uL Eos # (Auto) 0.1 (0.0-0.4) X10*3/uL Baso # (Auto) 0.0 (0.0-0.2) X10*3/uL Abs Immat Gran (auto) 0.09 H (0.00-0.03) X10*3/uL Absolute Neuts (auto) 3.9 (2.0-8.3) x10*3/uL Absolute Nucleated RBC 0.000 (0.0-0.012) X10*3/uL Nucleated RBC % (auto) 0.0 (0.0-0.2) /100WBC PT 11.4 (11.1-13.3) SEC INR 0.9 (0.9-1.1) Sodium 142 (135-145) mmol/L Potassium 4.3 (3.3-5.1) mmol/L Chloride 110 H (96-108) mmol/L Carbon Dioxide 24 (22-29) mmol/L Anion Gap 12 (12-20) BUN 26 H (9-16) mg/dL Creatinine 0.94 (0.5-1.4) mg/dL Estim Creat Clear Calc 65.1 Estimated GFR > 60 Random Glucose 109 (60-115) mg/dL Calcium 9.6 (8.4-10.2) mg/dL Magnesium 2.0 (1.6-2.6) mg/dL Total Bilirubin 0.3 (0.0-1.0) mg/dL Direct Bilirubin 0.1 (0.0-0.5) mg/dL AST 18 (5-37) U/L ALT 19 (0-40) U/L Alkaline Phosphatase 76 (39-117) U/L Troponin I High Sens (<3.5-35.0) ng/L Total Protein 6.8 (6.5-8.0) g/dL Albumin 4.0 (3.5-5.0) g/dL 06/05/23 Range/Units 15:41 WBC (4.8-10.8) X10*3/uL RBC (4.60-5.80) X10*6/uL Hgb (14.0-18.0) g/dl Hct (42.0-52.0) % MCV (80.0-98.0) fL MCH (27.0-33.0) pg MCHC (31.0-36.0) g/dl RDW (11.0-16.0) % Plt Count (160-400) X10*3/uL MPV (9.4-12.4) fL Immature Gran % (Auto) (0.0-0.4) % Neut % (Auto) (45-73) % Lymph % (Auto) (20-40) % [place] % (Auto) (2-11) % Eos % (Auto) (0-4) % Baso % (Auto) (0-2) % Lymph # (Auto) (1.2-4.9) X10*3/uL [place] # (Auto) (0.1-1.2) X10*3/uL Eos # (Auto) (0.0-0.4) X10*3/uL Baso # (Auto) (0.0-0.2) X10*3/uL Abs Immat Gran (auto) (0.00-0.03) X10*3/uL Absolute Neuts (auto) (2.0-8.3) x10*3/uL Absolute Nucleated RBC (0.0-0.012) X10*3/uL Nucleated RBC % (auto) (0.0-0.2) /100WBC PT (11.1-13.3) SEC INR (0.9-1.1) Sodium (135-145) mmol/L Potassium (3.3-5.1) mmol/L Chloride (96-108) mmol/L Carbon Dioxide (22-29) mmol/L Anion Gap (12-20) BUN (9-16) mg/dL Creatinine (0.5-1.4) mg/dL Estim Creat Clear Calc Estimated GFR Random Glucose (60-115) mg/dL Calcium (8.4-10.2) mg/dL Magnesium (1.6-2.6) mg/dL Total Bilirubin (0.0-1.0) mg/dL Direct Bilirubin (0.0-0.5) mg/dL AST (5-37) U/L ALT (0-40) U/L Alkaline Phosphatase (39-117) U/L Troponin I High Sens 14.7 (<3.5-35.0) ng/L Total Protein (6.5-8.0) g/dL Albumin (3.5-5.0) g/dL Independent Interpretation I performed an independent interpretation of an: Plain X-Ray (Chest: Done on 06/04 no acute intrathoracic pathology.), Ultrasound (Done on 06/04 venous ultrasound: No DVT.) and CT Scan (Head CT: No acute intracranial pathology. 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 (No acute intracranial abnormality identified. 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 Small chronic appearing infarcts in the right frontal lobe deep white matter and right basal ganglia. 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 ) Discharge Plan Discharge Clinical Impression: Hypertensive urgency, CVA (cerebral vascular accident) Patient Disposition: Admitted As Inpatient
--- NOTE | 2023-06-05 15:23 | ECG_ITS ---
Test Reason : WEAKNESS Blood Pressure : / mmHG Vent. Rate : 071 BPM Atrial Rate : 071 BPM P-R Int : 182 ms QRS Dur : 074 ms QT Int : 374 ms P-R-T Axes : 080 -13 051 degrees QTc Int : 406 ms Normal sinus rhythm with sinus arrhythmia Nonspecific T wave abnormality Abnormal ECG When compared with ECG of 04-JUN-2023 09:45, No significant change was found Referred By: Radha Pyle Electronically Signed By:GISELE HUSAIN
[2023-06-05 15:52] LABS: MANUAL DIFF FLAG NO
[2023-06-05 15:55] LABS: Basophils Percent Auto 0.5 % (0-2); Eosinophils Absolute Auto 0.1 X10*3/uL (0.0-0.4); Eosinophils Percent Auto 1.4 % (0-4); Hematocrit 42.5 % (42.0-52.0); Hemoglobin 14.1 g/dl (14.0-18.0); Imm Gran Abs Auto 0.09 X10*3/uL (0.00-0.03); Imm Gran Pct Auto 1.4 % (0.0-0.4); Lymphocytes Absolute Auto 1.8 X10*3/uL (1.2-4.9); Lymphocytes Percent Auto 27.3 % (20-40); Mean Corpuscular HGB Conc 33.2 g/dl (31.0-36.0); Mean Corpuscular Hemoglobin 30.5 pg (27.0-33.0); Mean Corpuscular Volume 91.8 fL (80.0-98.0); Mean Platelet Volume 9.1 fL (9.4-12.4); Monocytes Absolute Auto 0.7 X10*3/uL (0.1-1.2); Monocytes Percent Auto 10.4 % (2-11); Neutrophils Absolute Auto 3.9 x10*3/uL (2.0-8.3); Platelet Count 156 X10*3/uL (160-400); Red Blood Count 4.63 X10*6/uL (4.60-5.80); Red Cell Distribution Width 13.3 % (11.0-16.0); White Blood Count 6.6 X10*3/uL (4.8-10.8)
[2023-06-05 16:03] LABS: INTERNATIONAL NORM RATIO 0.9 (0.9-1.1); Prothrombin Time 11.4 SEC (11.1-13.3)
[2023-06-05 16:16] LABS: Alanine Aminotransferase 19 U/L (0-40); Alkaline Phosphatase 76 U/L (39-117); Anion Gap 12 (12-20); Aspartate Amino Transferase 18 U/L (5-37); Bilirubin Direct 0.1 mg/dL (0.0-0.5); Bilirubin Total 0.3 mg/dL (0.0-1.0); Blood Urea Nitrogen 26 mg/dL (9-16); Calcium 9.6 mg/dL (8.4-10.2); Carbon Dioxide 24 mmol/L (22-29); Chloride 110 mmol/L (96-108); Creatinine Clr Calc Pharmacy 65.1; Estimated Glomerular Filt Rate > 60; Glucose Random 109 mg/dL (60-115); Potassium 4.3 mmol/L (3.3-5.1); Sodium 142 mmol/L (135-145); Total Protein 6.8 g/dL (6.5-8.0)
[2023-06-05 16:24] LABS: Troponin-I High Sensitivity 14.7 ng/L (<3.5-35.0)
--- NOTE | 2023-06-05 17:32 | P.HPHOSP_ITS ---
History of Present Illness Date of Service: 06/05/23 Attending physician on admission: [facility] Chief Complaint: Slurred speech, ataxia Pt is an 87-year-old male with a PMH significant for?HTN who presents to the ED with?headaches, dizziness, ataxia, aphasia, and increasing shortness of breath for the past 2-3 weeks. Patient accompanied by daughters who help supply HPI. Patient has been experiencing headaches, dizziness, difficulty walking, and moments stuttering and aphasia for the past 2-3 weeks. Patient has been experiencing chronic shortness of breath for the past few years, but seemingly worsening during this time 2. Patient now has difficulty with walking 15-20 feet. Patient also reports unsteadiness on his feet. Has only recently begun using a cane for balance. On hydrochlorothiazide for longstanding HTN, but apparently takes it more as a p.r.n. than daily. Patient not followed closely by any medical practitioner, has not seen a PCP a for over 8 years. Patient also complains of swollen hands and feet. Occasionally it wraps his legs with Tyrell wraps which helps, but he cannot fit into his compression stockings. Of note, patient was seen at the emergency room yesterday and evaluated for lower extremity swelling; apparently did not mention or highlight his other complaints that bring him in today. When patient got home from the emergency room last ni ght his dizziness and ataxia returned. Patient denies chest pain/pressure, palpitations. No fever, chills, nausea, vomiting, abdominal pain. Denies hemiparesis. No falls or LOC. In the ED patient was afebrile but tachypneic to 22 and hypertensive up to 213/94. Labs were grossly unremarkable. Stable H&H. Electrolytes WNL. Renal function WNL. CXR yesterday on 06/04/2023 showed no acute cardiopulmonary process. Head CT 2 days showed no acute intracranial abnormality, but found chronic infarct in the left middle cerebral artery vascular territory, small chronic appearing infarcts in the right frontal lobe deep white matter and right basal ganglia, with mild to moderate chronic microangiopathic changes. Venous duplex on 06/04/2023 showed no evidence for DVT in bilateral lower extremities. EKG demonstrated normal sinus rhythm with nonspecific ST and T-wave abnormalities. Pt was treated with aspirin. Pt will be admitted to the hospital under observation on telemetry for further workup and evaluation of possible CVA. Review of Systems Review of Systems: Headache Dizziness Ataxia Aphasia Stuttering Shortness of breath Lower leg edema Denies hemiparesis Yes all other systems are reviewed and are negative [facility] [place] Social History Household Members: Spouse Housing: House Do you presently have visiting nurse or other home services: No Alcohol intake: never Patient Tobacco Use Status: Never used Tobacco Smoked in Last 30 Days: No Use of substances other than those prescribed or required for medical reasons: No Currently Displaying Signs/Symptoms of Drug Intoxication Withdrawal: No Any prior treatment program specific to substance use: No Have you been hit, kicked, punched, or otherwise hurt by someone within the past year? If so, by whom?: No Do you feel safe in your current relationship?: Yes Is there a partner from a previous relationship who is making you feel unsafe now?: No Are you made to feel afraid or neglected: No Advance Directives: No Advance Directives Information Provided: No Advance Directives on File: No Do you have thoughts of harming others: None Do you have a plan to hurt others: No Plan Recently lost weight without trying: No How much weight loss: Not applicable Eating poorly because of decreased appetite: No Nutrition screen score: 0 Nutrition Risks: No Nutritional Risk Poor oral hygiene: No service: Yes Meds Allergies Allergy/AdvReac Type Severity Reaction Status Date / Time lisinopril Allergy Unknown skin rash Uncoded 06/05/23 18:21 Active Medications: Current Medications Aspirin (Aspirin Enteric Coated 81 Mg Tablet.) 81 mg PO DAILY [facility] Pharmacy Consult (Consult Rx Perform Med Rec) 1 each MISCELLANE ONCE PRN PRN Reason: Consult order Home Medications Medication Instructions Recorded Confirmed Last Taken Type aspirin 81 mg tablet,delayed 81 mg PO DAILY 05/19/23 06/05/23 Unknown History release (Adult Low Dose Aspirin) naproxen sodium 220 mg tablet 220 mg PO DAILY 06/05/23 06/05/23 Unknown History (Aleve) Physical Exam Vital Signs and Narrative: Vital Signs: Last Vital Signs Temp 98.4 F 06/05/23 16:04 Pulse 76 06/05/23 16:20 Resp 22 H 06/05/23 16:04 BP 197/95 H 06/05/23 16:20 Pulse Ox 96 06/05/23 16:04 O2 Del Method Room Air 06/05/23 16:04 BMI result Body Mass Index 31.9 Constitutional: Alert, in no acute distress. Mental Status: Oriented to person, place and time. Eyes: Pupils are equal, round, and reactive to light. Ear, Nose, and Throat: Oropharynx clear, mucous membranes moist. Ears and nose w ithout deformities. Trachea midline. Respiratory: Clear to auscultation bilaterally. No wheezing, rales, or rhonchi. Cardiovascular: S1, S2 regular. No murmurs, rubs, or gallops. Gastrointestinal: Abdomen soft, non-tender, non-distended. Normal bowel sounds. Neurologic: Cranial nerves II-XII are grossly intact bilaterally. No focal neurological deficits. Moves all extremities spontaneously. Musculoskeletal: No cyanosis or clubbing. Extremities: 1+ pitting edema of right lower extremity. 2+ pitting edema of left lower extremity. Erythema and scaling of bilateral lower extremities secondary to chronic venous insufficiency. Psychiatric: Normal mood and affect. Results Labs 06/05/23 15:41 06/05/23 15:41 Labs: Laboratory Results - last 24 hr 06/05/23 06/05/23 06/05/23 15:41 15:41 15:41 MCV 91.8 MCH 30.5 MCHC 33.2 RDW 13.3 Plt Count 156 L MPV 9.1 L Immature Gran % (Auto) 1.4 H Neut % (Auto) 59.0 Lymph % (Auto) 27.3 [place] % (Auto) 10.4 Eos % (Auto) 1.4 Baso % (Auto) 0.5 Lymph # (Auto) 1.8 [place] # (Auto) 0.7 Eos # (Auto) 0.1 Baso # (Auto) 0.0 Abs Immat Gran (auto) 0.09 H Absolute Neuts (auto) 3.9 Absolute Nucleated RBC 0.000 Nucleated RBC % (auto) 0.0 PT 11.4 INR 0.9 Anion Gap 12 Estim Creat Clear Calc 65.1 Estimated GFR > 60 Random Glucose 109 Calcium 9.6 Magnesium 2.0 Total Bilirubin 0.3 Direct Bilirubin 0.1 AST 18 ALT 19 Alkaline Phosphatase 76 Total Protein 6.8 Albumin 4.0 Imaging Radiologist's Impressions: Impressions Head CT 06/05/23 16:05 IMPRESSION: No acute intracranial abnormality identified. 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 Small chronic appearing infarcts in the right frontal lobe deep white matter and right basal ganglia. 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 Assessment and Plan (1) Ataxia: Status: Acute (2) Aphasia: Status: Acute Plan Pt is an 87-year-old male with a PMH significant for?HTN who presents to the ED with?headaches, dizziness, ataxia, aphasia, and increasing shortness of breath for the past 2-3 weeks. Pt will be admitted to the hospital under observation on telemetry for further workup and evaluation of possible CVA. Question of CVA Pt with headache, dizziness, ataxia, aphasia, stuttering x2-3 weeks Denies any facial droop, hemiparesis, LOC Patient with no focal deficits noted Patient not on statin Received aspirin in the ED Continue aspirin Lipid panel MRI of brain Echocardiogram PT/OT and speech evaluation Neurology consult Admit to telemetry Lower leg edema Likely secondary to chronic venous stasis BNP WNL Will get echocardiogram Eucerin for legs SOB Increasing SOB x3 years Acute CHF unlikely Pt has been more sedentary since COVID Will get echo, PT evaluation Hypertensive urgency BP as high as 213/94, currently 172/84 Continue hydrochlorothiazide Full Code Attending:?Dr. Camacho DVT Prophylaxis: Lovenovanna Patient be admitted to the hospital under observation on telemetry for further workup for question of CVA. Time Spent With Patient Time: Total time managing care of this patient today ____ minutes. Quality Stroke Does the patient have a stroke diagnosis?: No Reason for No Anti-thrombotic by Day Two: Contraindicated (Pt's symptoms began 2-3 weeks ago) VTE Prior VTE?: No VTE Risk Level:: Medical - moderate - high VTE Device Contraindication: Treatment Not Indicated VTE Drug Contraindication: N/A - Med Ordered
[2023-06-05] MEDS: Aspirin Enteric Coated 81 MG TABLET.DR PO (17:35)
--- NOTE | 2023-06-05 19:29 | PC.NURSE ---
Assumed care of pt. Pt en route to MRI on assumption of care.
[2023-06-05 19:44] LABS: Appearance Urine Clear; Color Urine Yellow; Glucose Urine UA Negative (Negative); Leukocyte Esterase Urine Negative (Negative); Nitrite Urine Negative (Negative); Urine Blood Negative (Negative); Urine Ketones Negative (Negative); Urine Protein Negative (Neg-Trace)
[2023-06-05] MEDS: Enoxaparin Sodium 40 MG/0.4 ML SYRINGE SUBCUT (21:04)
[2023-06-06] MEDS: 0.9 % Sodium Chloride Flush 3 ML SYRINGE IVFLUSH ×2 (00:21→08:34)
[2023-06-06 04:00] VITALS: BP 158/92; PULSE 73; RESP 18; TEMP 37.1; O2SAT 96
[2023-06-06 06:56] LABS: Cholesterol 206 mg/dL; HDL Cholesterol 34 mg/dL; LDL Cholesterol Calculated 133 mg/dl; Triglycerides 198 mg/dL
--- NOTE | 2023-06-06 07:00 | CA_ITS ---
Transthoracic Echocardiogram Patient (Last, First, Middle): Jesus Alberto Godinez, Gender: Male Date of : 1935 Age: 87 Procedure Date: 06/06/2023 Procedure Type: Transthoracic Echocardiogram Location: [facility] – [place] Height: 172.72 cm Weight: 97.98 kg BSA: 2.11 m2 Heart Rate: 85 bpm BP: 140 / 80 mmHg Rotating Equipment Specialist: MIRTA Referring MD: Zeina LOERA Gambling Box Person: Noé Ibarra MD Symptoms: SOB, stroke workup Study Quality: Adequate/Contrast ECG Rhythm: Arrhythmia Conclusions: - 1. Technically limited study despite use of contrast agent 2. Normal LV systolic function with LVEF of 60-65% with mild LVH with impaired relaxation filling pattern 3. Mild calcific aortic stenosis 4. Upper limits of normal ascending aortic size Findings Procedure Information Contrast agent, definity, is being given per protocol without apparent complications. Left Ventricle Normal left ventricular size and systolic function. There is mildly increased left ventricular wall thickness. The visually estimated ejection fraction is between 60-65%. Spectral Doppler is indicative of an impaired relaxation filling pattern. E/E prime ratio is between 8 and 15 consistent with indeterminate filling pressures. Right Ventricle Normal right ventricular cavity size and systolic function. Atria The left atrium is normal in size. Aortic Valve There is mild calcification of the aortic valve. There is moderate thickening of the aortic valve. There is mild aortic valve stenosis. The peak aortic gradient is 18 mmHg.The mean gradient is 12 mmHg. The aortic valve area is 2.09 cm2. There is no aortic valve regurgitation. Mitral Valve There is mild anterior and posterior mitral leaflet thickening. There is mild anterior and mild posterior mitral annular calcification. There is trace mitral valve regurgitation. There is no mitral valve stenosis. Pulmonic Valve The pulmonic valve was not well visualized. Tricuspid Valve Likely normal tricuspid valve structure and function. Tricuspid regurgitation envelope is inadequate for calculation of right ventricular systolic pressure. Great Vessels The pulmonary artery was not well visualized. Venous The inferior vena cava is normal in size. Pericardium/Pleural The pericardium was not well visualized. Prior Study Comparison No prior study available for comparison. Measurements 2D Linear Measurements IVSd: 1.20 0.6-0.9/0.6-1.0 cm LVIDd: 4.10 3.9-5.3/4.2-5.9 cm LVIDd Index: 1.94 2.4-3.2/2.2-3.1 cm/m2 LVIDs: 1.60 2.0-3.6 cm LVPWd: 1.30 0.7-1.1 cm LA Diam: 3.30 2.7-3.8/3.0-4.0 cm LAIDs Index: 1.56 1.5-2.3 cm/m2 LV Mass: 227.32 67-162/88-224 g LV Mass Index: 107.73 43-95/49-115 g/m2 LVOT Diam: 1.80 3.0+(-)1.3 cm 2D Systolic Function EF 4C: 72.80 >55% EF 2C: 84.10 >55% EF BiP: 78.30 >55% Mitral Valve MV Pk E: 0.92 MV PK A: 1.14 MV Decel Time: 466.00 E/A: 0.80 E'Lateral: 6.53 E'Medial: 6.64 E/E' Med: 13.90 E/E' Lat: 14.20 PHT: 137.00 MVA PHT: 1.61 Decel Knott: 1.98 Aortic Valve AoV Pk Johnny: 2.15 AoV Mn Johnny: 1.64 AoV VTI: 0.41 AoV Pk Grad: 18.00 Aov Mn Grad: 12.00 CRUZ Cont.VTI: 2.09 LVOT LVOT Pk Johnny: 1.66 LVOT Mn Johnny: 1.30 LVOT VTI: 0.34 LVOT Pk Grad: 11.00 LVOT Mn Grad: 7.00 LVOT Diam: 1.80 LVOT Area: 2.54 Diastolic Function MV Pk E: 0.92 MV Pk A: 1.14 E/A: 0.80 E'Medial: 6.64 E/E' Med: 13.90 E' Laterial: 6.53 E/E' Lat: 14.20 Right Ventricle TAPSE (mm): 18.00 TVS' Johnny: 12.50 Great Vessels Aorta Sinus of Valsalva: 3.90 2.0-3.5 cm Ao Asc: 3.60 2.1-3.4 cm Pulmonary Valve PV Pk Johnny: 1.24 Peak PV Grad: 6.00 Updated in Other Vendor System with Status of Final Noé Ibarra MD electronically signed on 06/06/2023 11:14:26 AM with status of Final
[2023-06-06 07:28] VITALS: BP 140/80; PULSE 76; RESP 20; TEMP 37; O2SAT 95
[2023-06-06 07:31] VITALS: BP 140/80; PULSE 76; O2SAT 95
[2023-06-06] MEDS: Aspirin Enteric Coated 81 MG TABLET.DR PO (08:34)
--- NOTE | 2023-06-06 08:38 | MHC.CM.PN ---
CM met with Patient at bedside and addressed DENISE with him, proving Patient with the original and placing a copy on the chart. Patient lives in a house with his /HCP and at baseline,he uses a cane to assist with mobility. PT is recommending home with services but Patient is not agreeable to VNA (nor would he likely qualify because his new PCP appointment with Dr. Adria Siddiqi is not until 06/16/2023). Patient explained that his Ahsmqihl-zv-Pfo is a PT @ [facility] and he does not feel that he will need VNA/home PT. CM has initiated and will follow for dc planning.
--- NOTE | 2023-06-06 09:20 | P.PNIM_ITS ---
Subjective Subjective Date of Service: 06/06/23 Interval History: f/u stroke, no new focal weakness Physical Exam Vital Signs: Vital Signs: Last Vital Signs Temp 98.6 F 06/06/23 07:28 Pulse 76 06/06/23 07:31 Resp 20 06/06/23 07:28 BP 140/80 H 06/06/23 07:31 Pulse Ox 95 06/06/23 07:31 O2 Del Method Room Air 06/06/23 07:28 BMI result Body Mass Index 31.9 Const: Other: General: AO X 2, no acute distress Resp: CTA bilateral CVS: S1,S2,RRR, katty leg chronic venous stasis GI: +BS, NT, no distention Skin: No rash Neuro: motor grossly intact, gait not tested for safety Psych: appropriate affect Objective Data Active Medications Acetaminophen (Acetaminophen 325 Mg Tablet) 650 mg PO Q6H PRN PRN Reason: Pain, Mild (Pain Scale 1-3) Aspirin (Aspirin Enteric Coated 81 Mg Tablet.) 81 mg PO DAILY [facility] Last Admin: 06/06/23 08:34 Dose: 81 mg Documented By: VARUN Docusate Sodium (Docusate Sodium 100 Mg Capsule) 100 mg PO DAILY PRN PRN Reason: Constipation Enoxaparin Sodium (Enoxaparin Sodium 40 Mg/0.4 Ml Syringe) 40 mg SUBCUT Q24H [facility] Last Admin: 06/05/23 21:04 Dose: 40 mg Documented By: TORY Multi-Ingred Cream/Lotion/Oil/Oint (Mineral Oil/Petrolatum,White 106 Gm Tube) 1 appl TOPICAL DAILY [facility]; Protocol Last Admin: 06/05/23 22:32 Dose: Not Given Documented By: LASHAWN Non-Admin Reason: Med Not Available Ondansetron HCl (Ondansetron Hcl 4 Mg/2 Ml Vial) 4 mg IVPUSH Q8H PRN PRN Reason: Nausea and Vomiting Pharmacy Consult (Consult Rx Perform Med Rec) 1 each MISCELLANE ONCE PRN PRN Reason: Consult order Sodium Chloride (0.9 % Sodium Chloride Flush 3 Ml Syringe) 3 ml IVFLUSH QSHIFT [facility] Last Admin: 06/06/23 08:34 Dose: 3 ml Documented By: VARUN Labs 06/05/23 15:41 06/05/23 15:41 Labs: Laboratory Results - last 24 hr 06/05/23 06/05/23 06/05/23 15:41 15:41 15:41 MCV 91.8 MCH 30.5 MCHC 33.2 RDW 13.3 Plt Count 156 L MPV 9.1 L Immature Gran % (Auto) 1.4 H Neut % (Auto) 59.0 Lymph % (Auto) 27.3 [place] % (Auto) 10.4 Eos % (Auto) 1.4 Baso % (Auto) 0.5 Lymph # (Auto) 1.8 [place] # (Auto) 0.7 Eos # (Auto) 0.1 Baso # (Auto) 0.0 Abs Immat Gran (auto) 0.09 H Absolute Neuts (auto) 3.9 Absolute Nucleated RBC 0.000 Nucleated RBC % (auto) 0.0 PT 11.4 INR 0.9 Anion Gap 12 Estim Creat Clear Calc 65.1 Estimated GFR > 60 Random Glucose 109 Calcium 9.6 Magnesium 2.0 Total Bilirubin 0.3 Direct Bilirubin 0.1 AST 18 ALT 19 Alkaline Phosphatase 76 Total Protein 6.8 Albumin 4.0 Triglycerides Cholesterol LDL Cholesterol, Calc HDL Cholesterol Urine Color Urine Appearance Urine pH Ur Specific [place] Urine Protein Urine Glucose (UA) Urine Ketones Urine Blood Urine Nitrite Ur Leukocyte Esterase 06/05/23 06/06/23 19:23 06:11 MCV MCH MCHC RDW Plt Count MPV Immature Gran % (Auto) Neut % (Auto) Lymph % (Auto) [place] % (Auto) Eos % (Auto) Baso % (Auto) Lymph # (Auto) [place] # (Auto) Eos # (Auto) Baso # (Auto) Abs Immat Gran (auto) Absolute Neuts (auto) Absolute Nucleated RBC Nucleated RBC % (auto) PT INR Anion Gap Estim Creat Clear Calc Estimated GFR Random Glucose Calcium Magnesium Total Bilirubin Direct Bilirubin AST ALT Alkaline Phosphatase Total Protein Albumin Triglycerides 198 Cholesterol 206 LDL Cholesterol, Calc 133 HDL Cholesterol 34 Urine Color Yellow Urine Appearance Clear Urine pH 7.0 Ur Specific [place] 1.020 Urine Protein Negative Urine Glucose (UA) Negative Urine Ketones Negative Urine Blood Negative Urine Nitrite Negative Ur Leukocyte Esterase Negative Assessment and Plan (1) CVA (cerebral vascular accident): Status: Acute Plan Pt is an 87-year-old male with a PMH significant for?HTN who presents to the ED with?headaches, dizziness, ataxia, aphasia, and increasing shortness of breath for the past 2-3 weeks. Pt will be admitted to the hospital under observation on telemetry for further workup and evaluation of possible CVA. CVA manifested by Dizziness and Ataxia, MRI shows Multiple punctate and small acute infarcts in the right cerebral hemisphere which may reflect sequela of watershed ischemia and/or embolic phenomenon. -Echo to rule out intracardiac clot -Neuro consult -ASA, maybe plavix, -Lipitor 40, -PT/OT Lower leg edema Likely secondary to chronic venous stasis, echo as above, no evidence of chf SOB, no CHF, likely post covid phenomenon, deconditioning, PT OT Hypertensive emergency, resolved, BP as high as 213/94 on presenation Continue hydrochlorothiazide, avoid rapid lowering Full Code DVT Prophylaxis: Lovenox Admit to inpatient for at least 2 midnight for management of acute stroke Time Spent With Patient Time: Total time managing care of this patient today ____ minutes. Quality Stroke Does the patient have a stroke diagnosis?: No Reason for No Anti-thrombotic by Day Two: Contraindicated (Pt's symptoms began 2-3 weeks ago) VTE Prior VTE?: No VTE Risk Level:: Medical - moderate - high VTE Device Contraindication: Treatment Not Indicated VTE Drug Contraindication: N/A - Med Ordered
[2023-06-06 11:14] VITALS: BP 153/75; PULSE 81; RESP 20; TEMP 36.7; O2SAT 97
[2023-06-06] MEDS: iohexoL 350 MG/ML 75 ML INFUS..BTL 70 ML IV (11:22)
--- NOTE | 2023-06-06 11:46 | PM.NEUROCN ---
History of Present Illness Data of Consult Service Date: 06/06/23 Primary Care Provider: Unknown Physician HPI Reason for consult: Stroke 87 years old man who came to hospital yesterday with nonspecific symptoms of not feeling well, foggy, his with some headache, and unsteadiness and confusion. His blood pressure at that time was 02:13 systolic. I saw him in emergency room when he was unsteady and somewhat confused. There was no obvious sign of infection. A diagnosis of hypertensive encephalopathy was made and he was admitted. He had further evaluation with CT scan CTA an MRI. Now he was feeling much better uncomfortable with the clarity of mind and. Review of Systems Review of Systems: No recent cold or flu-like illness seizure or trauma. [facility] Social History Social History Household Members: Spouse Housing: House Do you presently have visiting nurse or other home services: No Alcohol intake: never Patient Tobacco Use Status: Never used Tobacco Smoked in Last 30 Days: No Use of substances other than those prescribed or required for medical reasons: No Currently Displaying Signs/Symptoms of Drug Intoxication Withdrawal: No Any prior treatment program specific to substance use: No Have you been hit, kicked, punched, or otherwise hurt by someone within the past year? If so, by whom?: No Do you feel safe in your current relationship?: Yes Is there a partner from a previous relationship who is making you feel unsafe now?: No Are you made to feel afraid or neglected: No Advance Directives: No Advance Directives Information Provided: No Advance Directives on File: No Do you have thoughts of harming others: None Do you have a plan to hurt others: No Plan Recently lost weight without trying: No How much weight loss: Not applicable Eating poorly because of decreased appetite: No Nutrition screen score: 0 Nutrition Risks: No Nutritional Risk Poor oral hygiene: No service: Yes Meds Allergies Allergy/AdvReac Type Severity Reaction Status Date / Time lisinopril Allergy Unknown skin rash Uncoded 06/05/23 18:21 Active Medications: Current Medications Acetaminophen (Acetaminophen 325 Mg Tablet) 650 mg PO Q6H PRN PRN Reason: Pain, Mild (Pain Scale 1-3) Aspirin (Aspirin Enteric Coated 81 Mg Tablet.Dr) 81 mg PO DAILY [facility] Last Admin: 06/06/23 08:34 Dose: 81 mg Atorvastatin Calcium (Atorvastatin Calcium 40 Mg Tablet) 40 mg PO DAILY [facility] Docusate Sodium (Docusate Sodium 100 Mg Capsule) 100 mg PO DAILY PRN PRN Reason: Constipation Enoxaparin Sodium (Enoxaparin Sodium 40 Mg/0.4 Ml Syringe) 40 mg SUBCUT Q24H [facility] Last Admin: 06/05/23 21:04 Dose: 40 mg Iohexol (Iohexol 350 Mg/Ml 75 Ml Infus..Btl) 70 ml IV ONCE ONE Stop: 06/06/23 11:23 Last Admin: 06/06/23 11:22 Dose: 70 ml Multi-Ingred Cream/Lotion/Oil/Oint (Mineral Oil/Petrolatum,White 106 Gm Tube) 1 appl TOPICAL DAILY [facility]; Protocol Last Admin: 06/05/23 22:32 Dose: Not Given Ondansetron HCl (Ondansetron Hcl 4 Mg/2 Ml Vial) 4 mg IVPUSH Q8H PRN PRN Reason: Nausea and Vomiting Pharmacy Consult (Consult Rx Perform Med Rec) 1 each MISCELLANE ONCE PRN PRN Reason: Consult order Sodium Chloride (0.9 % Sodium Chloride Flush 3 Ml Syringe) 3 ml IVFLUSH QSHIFT [facility] Last Admin: 06/06/23 08:34 Dose: 3 ml Home Medications Medication Instructions Recorded Confirmed Last Taken Type aspirin 81 mg tablet,delayed 81 mg PO DAILY 05/19/23 06/05/23 Unknown History release (Adult Low Dose Aspirin) naproxen sodium 220 mg tablet 220 mg PO DAILY 06/05/23 06/05/23 Unknown History (Aleve) Physical Exam Vital Signs: Vital Signs: Last Vital Signs Temp 98.1 F 06/06/23 11:14 Pulse 81 06/06/23 11:14 Resp 20 06/06/23 11:14 BP 153/75 H 06/06/23 11:14 Pulse Ox 97 06/06/23 11:14 O2 Del Method Room Air 06/06/23 11:14 BMI result Body Mass Index 31.9 Neuro: Other: He is alert and awake with normal spontaneity of speech fluency comprehension and affect. His family was around and he was making jokes and talking without difficulty. Comprehension was intact. He was following commands. Face was symmetrical. Visual corley are full. There was no pronator drift. Ospagd-[id number]-muer testing was okay. He was able to get up and walk in a cautious gait, which was better than yesterday. Results Labs 06/05/23 15:41 06/05/23 15:41 Labs: Short CBC 06/05/23 Range/Units 15:41 WBC 6.6 (4.8-10.8) X10*3/uL Hgb 14.1 (14.0-18.0) g/dl Hct 42.5 (42.0-52.0) % Plt Count 156 L (160-400) X10*3/uL BMP 06/05/23 15:41 Sodium 142 Potassium 4.3 Chloride 110 H Carbon Dioxide 24 BUN 26 H Creatinine 0.94 Calcium 9.6 Liver Function 06/05/23 Range/Units 15:41 Total Bilirubin 0.3 (0.0-1.0) mg/dL Direct Bilirubin 0.1 (0.0-0.5) mg/dL AST 18 (5-37) U/L ALT 19 (0-40) U/L Alkaline Phosphatase 76 (39-117) U/L Albumin 4.0 (3.5-5.0) g/dL Urine 06/05/23 Range/Units 19:23 Urine Color Yellow Urine Appearance Clear Urine pH 7.0 (5.0-9.0) Ur Specific [place] 1.020 (1.005-1.025) Urine Protein Negative (Neg-Trace) mg/dL Urine Glucose (UA) Negative (Negative) mg/dL Head CT revealed a chronic left frontal cortical so small to medium size infarct and mild cerebral atrophy. MRI of brain revealed multiple area of restricted diffusion right middle cerebral artery territory mostly in watershed area. CTA of brain and neck was reviewed. It seem to suggest bilateral internal carotid artery significant stenosis at her region. Assessment and Plan (1) CVA (cerebral vascular accident): Status: Acute 87 years old man with uncontrolled hypertension came to hospital with set of symptoms that were suggestive more of hypertensive encephalopathy than a focal pathology. With control of blood pressure, he symptomatic Yvonne better. His imaging has revealed multiple ischemic lesions and right middle cerebral artery territory in water should area with CTA possibly revealing bilateral internal carotid artery stenosis. Recommendation at this time are blood pressure control but keeping blood pressured in high normal ranges and avoiding hypotension, aspirin 81 mg daily, and statin. He might need carotid endarterectomy but that should be considered in of week or 2 Time Spent With Patient Time: Total time managing care of this patient today ____ minutes. Procedures Date of Service Date of Service: 06/06/23
[2023-06-06] MEDS: Atorvastatin Calcium 40 MG TABLET PO (12:21)
--- NOTE | 2023-06-06 13:04 | PM.CNGS ---
History of Present Illness Consult details Consult date: 06/06/23 Reason for consult: other (Carotid stenosis with stroke) Narrative: Very pleasant 87-year-old gentleman presents to the hospital with an episode aphasia. Upon workup he was noted to have high-grade carotid stenosis and stroke. Of note at the time of admission he was noted to have high blood pressure as well. He now presents to us for vascular evaluation. At the time of my evaluation he was actually up and ambulating. He had no lateralizing signs or symptoms he denied any speech disturbances at the current time in no visual deficits. Upon discussion with the family he is not very active but can walk a block with no significant difficulties. Review of Systems Review of Systems: Yes all other systems are reviewed and are negative Constitutional: Constitutional: Reports no additional constitutional complaints ENT: Reports Normal hearing present Cardiovascular: Cardiovascular: Denies chest pain, Denies chest pain at rest, Denies chest pain with activity and Denies pedal edema Respiratory: Respiratory: Denies cough Gastrointestinal: Gastrointestinal: Denies abdominal pain Musculoskeletal: Musculoskeletal: Denies abnormal gait, Denies muscle cramps and Denies radiating pain into limb Integumentary/Breasts: Skin/Breast: Denies skin ulcer and Denies wounds Neurologic: Reports Normal hearing present and Denies abnormal gait Psychiatric: Psychiatric: Reports no additional psychiatric complaints [facility] Social History Social History Household Members: Spouse Housing: House Do you presently have visiting nurse or other home services: No Alcohol intake: never Patient Tobacco Use Status: Never used Tobacco Smoked in Last 30 Days: No Use of substances other than those prescribed or required for medical reasons: No Currently Displaying Signs/Symptoms of Drug Intoxication Withdrawal: No Any prior treatment program specific to substance use: No Have you been hit, kicked, punched, or otherwise hurt by someone within the past year? If so, by whom?: No Do you feel safe in your current relationship?: Yes Is there a partner from a previous relationship who is making you feel unsafe now?: No Are you made to feel afraid or neglected: No Advance Directives: No Advance Directives Information Provided: No Advance Directives on File: No Do you have thoughts of harming others: None Do you have a plan to hurt others: No Plan Recently lost weight without trying: No How much weight loss: Not applicable Eating poorly because of decreased appetite: No Nutrition screen score: 0 Nutrition Risks: No Nutritional Risk Poor oral hygiene: No service: Yes Meds Allergies Allergy/AdvReac Type Severity Reaction Status Date / Time lisinopril Allergy Unknown skin rash Uncoded 06/05/23 18:21 Active Medications: Current Medications Acetaminophen (Acetaminophen 325 Mg Tablet) 650 mg PO Q6H PRN PRN Reason: Pain, Mild (Pain Scale 1-3) Aspirin (Aspirin Enteric Coated 81 Mg Tablet.) 81 mg PO DAILY [facility] Last Admin: 06/06/23 08:34 Dose: 81 mg Atorvastatin Calcium (Atorvastatin Calcium 40 Mg Tablet) 40 mg PO DAILY [facility] Last Admin: 06/06/23 12:21 Dose: 40 mg Docusate Sodium (Docusate Sodium 100 Mg Capsule) 100 mg PO DAILY PRN PRN Reason: Constipation Enoxaparin Sodium (Enoxaparin Sodium 40 Mg/0.4 Ml Syringe) 40 mg SUBCUT Q24H [facility] Last Admin: 06/05/23 21:04 Dose: 40 mg Multi-Ingred Cream/Lotion/Oil/Oint (Mineral Oil/Petrolatum,White 106 Gm Tube) 1 appl TOPICAL DAILY [facility]; Protocol Last Admin: 06/06/23 12:03 Dose: Not Given Ondansetron HCl (Ondansetron Hcl 4 Mg/2 Ml Vial) 4 mg IVPUSH Q8H PRN PRN Reason: Nausea and Vomiting Pharmacy Consult (Consult Rx Perform Med Rec) 1 each MISCELLANE ONCE PRN PRN Reason: Consult order Sodium Chloride (0.9 % Sodium Chloride Flush 3 Ml Syringe) 3 ml IVFLUSH QSHIFT [facility] Last Admin: 06/06/23 08:34 Dose: 3 ml Home Medications Medication Instructions Recorded Confirmed Last Taken Type aspirin 81 mg tablet,delayed 81 mg PO DAILY 05/19/23 06/05/23 Unknown History release (Adult Low Dose Aspirin) naproxen sodium 220 mg tablet 220 mg PO DAILY 06/05/23 06/05/23 Unknown History (Aleve) Physical Exam Vital Signs: Vital Signs: Last Vital Signs Temp 98.1 F 06/06/23 11:14 Pulse 81 06/06/23 11:14 Resp 20 06/06/23 11:14 BP 153/75 H 06/06/23 11:14 Pulse Ox 97 06/06/23 11:14 O2 Del Method Room Air 06/06/23 11:14 BMI result Body Mass Index 31.9 Const: General: cooperative, healthy appearing and comfortable Orientation/consciousness: oriented to person, oriented to place and oriented to time HEENT: Head: Yes normal to inspection Neck: Neck: Yes normal visual inspection Carotids: no bruits Chest: Chest palpation & inspection: normal inspection of the chest Resp: Effort & Inspection: normal respiratory effort and able to speak in complete sentences Auscultation: clear to auscultation bilaterally, no crackles, no rales, no rhonchi and no wheezes Cardio: Rate: regular rate Rhythm: regular rhythm Heart sounds: S1 normal heart sound present and S2 normal heart sound present Bruits: no carotid bruits Peripheral pulses: Peripheral pulses 2+ throughout GI: Inspection: Yes normal to inspection Skin: Wounds: no wounds Hair: normal Neuro: General: oriented to person, oriented to place and oriented to time Cranial nerves: Yes CN's II-XII intact bilaterally and Yes Normal hearing present Cognition (Neuro): normal cognition Motor exam (neuro): 5/5 motor strength present throughout Extrem: Other: venous exam: No significant superficial varicosities or spider telangiectasias, minimal edema General: No clubbing, No cyanosis and No edema Psych: Appearance: grossly normal Mental Status: mental status grossly normal Speech and movement: Normal speech and movement present Results Labs 06/05/23 15:41 06/05/23 15:41 Labs: Abnormal lab results 06/05/23 06/05/23 Range/Units 15:41 15:41 Plt Count 156 L (160-400) X10*3/uL MPV 9.1 L (9.4-12.4) fL Immature Gran % (Auto) 1.4 H (0.0-0.4) % Abs Immat Gran (auto) 0.09 H (0.00-0.03) X10*3/uL Chloride 110 H (96-108) mmol/L BUN 26 H (9-16) mg/dL Short CBC 06/05/23 Range/Units 15:41 WBC 6.6 (4.8-10.8) X10*3/uL Hgb 14.1 (14.0-18.0) g/dl Hct 42.5 (42.0-52.0) % Plt Count 156 L (160-400) X10*3/uL BMP 06/05/23 15:41 Sodium 142 Potassium 4.3 Chloride 110 H Carbon Dioxide 24 BUN 26 H Creatinine 0.94 Calcium 9.6 Liver Function 06/05/23 Range/Units 15:41 Total Bilirubin 0.3 (0.0-1.0) mg/dL Direct Bilirubin 0.1 (0.0-0.5) mg/dL AST 18 (5-37) U/L ALT 19 (0-40) U/L Alkaline Phosphatase 76 (39-117) U/L Albumin 4.0 (3.5-5.0) g/dL Urine 06/05/23 Range/Units 19:23 Urine Color Yellow Urine Appearance Clear Urine pH 7.0 (5.0-9.0) Ur Specific [place] 1.020 (1.005-1.025) Urine Protein Negative (Neg-Trace) mg/dL Urine Glucose (UA) Negative (Negative) mg/dL All other labs normal. Imaging Additional studies: CT scan results noted and demonstrates bilateral 90% carotid stenosis. MRI demonstrates acute right-sided small infarcts. 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 He does have bilateral high-grade stenosis but the right side seems to be the 1 causing symptoms at the current time. He will require right carotid endarterectomy. Risks benefits complications were discussed in detail with the patient. I will require cardiac risk stratification. Would recommend a statin and dual anti-platelet agents of aspirin and Plavix. We will schedule as an outpatient within the next few weeks. This was all discussed with the family that was present. Time Spent With Patient Time: Total time managing care of this patient today __60__ minutes. Review of imaging discussion with family and hospitalist team, along with mailroom coordinator. Procedures Date of Service Date of Service: 06/06/23
--- NOTE | 2023-06-06 13:08 | MHC.STROKE ---
06/05/23 1507 WALK-IN C/O DIZZINESS, OF BALANCE. SEEN BY PROVIDER NIHSS = 0, CTH DONE SEE RESULTS, MRI DONE + ISCHEMIC STROKES SEE REPORT. CTA H/N DONE TODAY. NAHEED CAROTID 90% STENOSIS. NOTIFIED DR. WHITE AND DR FARRIS, I MET WITH THE PATIENT AND FAMILY 3 TIMES TODAY. HIS ONSET OF SYMPTOMS WERE OVER THE PAST FEW WEEKS AND DIZZINESS WORSE A FEW DAYS AGO. I PROVIDED STROKE EDUCATION, REVIEWED HIS LABS, ECHO, CTA, MRI, I PROVIDED A SCREENSHOT OF THE MRI IMAGES. I REVIEWED ALL OF HIS RISK FACTORS, COMPLIANCE WITH MEDICATIONS, FOLLOWING UP WITH PCP AND S&S OF STROKE AND TO CALL 911 IF ANY STROKE SYMPTOMS RETURN. I ANSWERED ALL OF THEIR QUESTIONS.
[2023-06-06 15:23] VITALS: BP 166/79; PULSE 62; RESP 18; TEMP 36.6; O2SAT 97
--- NOTE | 2023-06-06 16:50 | PC.NURSE ---
Patient is alert and oriented X4 speech clear, face symmetric, tongue midline. Denies dizziness, headache or vision changes pupils PERRL 2B. Denies pain/discomfort. LSCTA denies SOB or CP, NSR on tele. GOEL to command 5/5 sensation intact, +pp bilat. 2+ edema to RLE, LLE 3+ pitting to left pt encouraged to keep elevated when possible. OOB with cane steady gait in room. Staff attempted to put chair alarm multiple times but is being removed prior to getting up by patient. Echo completed in am off unit for CT late am. Seen by Neurology and surgery in afternoon. Family at bedside aware of plan. Approx 1415 pt had 3 beat vtach on tele asymptomatic resting in chair. Dr Camacho notified no new orders at this time. Will continue to monitor and report changes
[2023-06-06 19:24] VITALS: BP 159/82; PULSE 66; RESP 18; TEMP 36.7; O2SAT 95
[2023-06-06] MEDS: Enoxaparin Sodium 40 MG/0.4 ML SYRINGE SUBCUT (23:16)
[2023-06-07] VITALS: BP 167/90; PULSE 70; RESP 20; TEMP 36.5; O2SAT 95
[2023-06-07] MEDS: 0.9 % Sodium Chloride Flush 3 ML SYRINGE IVFLUSH ×2 (00:27→08:12)
[2023-06-07 04:00] VITALS: BP 170/76; PULSE 76; RESP 20; TEMP 36.1; O2SAT 95
[2023-06-07 07:26] VITALS: BP 135/99; PULSE 70; RESP 20; TEMP 36.6; O2SAT 96
[2023-06-07] MEDS: Atorvastatin Calcium 40 MG TABLET PO (08:11)
[2023-06-07] MEDS: Clopidogrel Bisulfate 75 MG TABLET PO (08:11)
[2023-06-07] MEDS: Aspirin Enteric Coated 81 MG TABLET.DR PO (08:11)
[2023-06-07] MEDS: Mineral Oil/Petrolatum,White 106 GM Tube 1 APPL TOPICAL (08:31)
--- NOTE | 2023-06-07 09:55 | PM.DS ---
DS: Providers Provider Date of Service: 06/07/23 Date of admission: 06/06/23 09:30 Primary care physician: Unknown Physician Consults: 06/05/23 18:19 Consult to Neurology Routine Consulting Provider: [facility] Reason for consultation: ?CVA. 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 Patient accompanied by daughters who help supply HPI.? Patient has been experiencing headaches, dizziness, difficulty walking, and moments stuttering and aphasia for the past 2-3 weeks.? Patient has been experiencing chronic shortness of breath for the past few years, but seemingly worsening during this time 2.? Patient now has difficulty with walking 15-20 feet.? Patient also reports unsteadiness on his feet.? Has only recently begun using a cane for balance.? On hydrochlorothiazide for longstanding HTN, but apparently takes it more as a p.r.n. than daily.? Patient not followed closely by any medical practitioner, has not seen a PCP a for over 8 years.? Patient also complains of swollen hands and feet.? Occasionally it wraps his legs with Tyrell wraps which helps, but he cannot fit into his compression stockings.? Of note, patient was seen at the emergency room yesterday and evaluated for lower extremity swelling; apparently did not mention or highlight his other complaints that bring him in today.? When patient got home from the emergency room last night his dizziness and ataxia returned.? Patient denies chest pain/pressure, palpitations.? No fever, chills, nausea, vomiting, abdominal pain.? Denies hemiparesis.? No falls or LOC. In the ED patient was afebrile but tachypneic to 22 and hypertensive up to 213/94. Labs were grossly unremarkable.? Stable H&H.? Electrolytes WNL.? Renal function WNL. CXR yesterday on 06/04/2023 showed no acute cardiopulmonary process.? Head CT 2 days showed no acute intracranial abnormality, but found chronic infarct in the left middle cerebral artery vascular territory, small chronic appearing infarcts in the right frontal lobe deep white matter and right basal ganglia, with mild to moderate chronic microangiopathic changes.? Venous duplex on 06/04/2023 showed no evidence for DVT in bilateral lower extremities. EKG demonstrated normal sinus rhythm with nonspecific ST and T-wave abnormalities. Pt was treated with aspirin. Pt will be admitted to the hospital under observation on telemetry for further workup and evaluation of possible CVA. Hospital course: He presented with acute CVA manifested by Dizziness and Ataxia,? MRI shows?Multiple punctate and small acute infarcts in the right cerebral hemisphere which may reflect sequela of watershed ischemia and/or embolic phenomenon., CTA head and Neck show bilateral at least 90% stenosis. Overall his symptoms have improved, Neurologist Dr. Stephenson has evaluted him and recommend dual antiplatlets with Aspirin and Plavix, high intensity Statin (Lipitor 40 mg daily), Physical therapy recommends going home with home Services. As for carotid stenosis, Dr. Velez (Vascular surgeon) also recommends dual antiplatelets and possible carotid surgery to be arranged on outpatient basis. Hypertensive emergency, resolved, BP was as high as 213/94 in setting of acute stroke and is presently better at 135/99 Time Spent with Patient Time attestation: Total time managing care of this patient today ____ minutes. Discharge coordination time: Greater than 30 minutes Quality: Safe Use of Opioids Does Pt have an Active Cancer Diagnosis on the Problem List?: No Quality: Stroke Does the patient have a stroke diagnosis?: No Physical Exam Vital Signs: Vital Signs: Last Vital Signs Temp 97.9 F 06/07/23 07:26 Pulse 70 06/07/23 07:26 Resp 20 06/07/23 07:26 BP 135/99 H 06/07/23 07:26 Pulse Ox 96 06/07/23 07:26 O2 Del Method Room Air 06/07/23 07:26 BMI result Body Mass Index 31.9 Const: Other: General: AO X 3, no acute distress Resp: CTA bilateral CVS: S1,S2,RRR GI: +BS, NT, no distention Skin: No rash Neuro: motor grossly intact Psych: appropriate affect Discharge Plan Discharge Anticipated Discharge Date/Time: 06/07/23 09:49 Patient Disposition: Home Health Service Discharge Diagnosis: Acute embolic stroke Referrals: Physician,Unknown J [Primary Care Provider] - 1 Week Discharge Medications: New aspirin 81 mg Tablet,Delayed Release (Dr/Ec) 81 mg PO DAILY Qty: 30 0RF Rx Instructions: over the counter baby aspirin daily atorvastatin 40 mg Tablet 40 mg PO DAILY Qty: 30 0RF clopidogrel 75 mg Tablet 75 mg PO DAILY Qty: 30 0RF Continued irbesartan-hydrochlorothiazide 150-12.5 mg tablet 1 tab PO DAILY Qty: 90 3RF naproxen sodium [Aleve] 220 mg Tablet 220 mg PO DAILY aspirin [Adult Low Dose Aspirin] 81 mg tablet,delayed release (DR/EC) 81 mg PO DAILY Discharge Orders: Discharge Order (Routine); Ordered 06/07/23 Ordered By: Abdi Camacho Diet: Advance to usual diet Activity on Discharge: As tolerated Stand Alone Forms: Patient Portal Discharge page Care Plan Goals: STroke prevention and recovery from present stroke Health Concerns: Stroke Plan of Treatment: Take Aspirin, and Plavix to thin your blood take Lipitor for high cholesterol Follow up with Dr. Velez to discuss treatment for carotid blockage Assessment: as above
--- NOTE | 2023-06-07 12:38 | P.CONCA_ITS ---
History of Present Illness History of Present Illness Date of Service: 06/07/23 Requesting physician: [facility] Consult reason: pre-op evaluation Chief complaint: headache, dizziness, ataxia, aphasia Narrative: I was consulted to see Jesus Alberto in cardiology consultation for preoperative cardiovascular risk stratification prior to carotid surgery. Patient is 87-year-old male, history obtained from the patient and patient's at bed side, complaining and presentation hospital with dizziness, ataxia and aphasia. He also has increased shortness of breath. He came to the hospital and has not seen a primary care physician for many years. Use to see Dr. Livingston. Subsequently diagnosed on this admission with right cerebral hemisphere infarcts, multiple infarction subsequently noted to have significant right carotid artery stenosis. He has longstanding history of hypertension but currently not on any medication as he has not seen a physician for while and came with hypertensive urgency. Currently blood pressure is better controlled. Seen by surgery and recommend right carotid endarterectomy. Patient walks with the help of a cane. He has no cardiac symptoms as per him. However reported for him to have exertional shortness of breath 2-3 weeks prior to the hospitalization. No clear the congestive heart failure symptoms. No symptoms of angina. Definitely has limited exercise capacity. Review of Systems Constitutional: Constitutional: Reports no additional constitutional complaints Eyes: Eyes: Reports no additional eye complaints Cardiovascular: Cardiovascular: Denies chest pain, Denies leg edema, Reports lightheadedness, Denies Loss of Consciousness, Denies palpitations, Reports dyspnea on exertion and Denies orthopnea Respiratory: Respiratory: Reports no additional respiratory complaints and Reports dyspnea on exertion Gastrointestinal: Gastrointestinal: Reports no additional gastrointestinal complaints Genitourinary: Genitourinary: Reports no additional male genitourinary complaints Musculoskeletal: Musculoskeletal: Reports no additional musculoskeletal complaints Integumentary/Breasts: Skin/Breast: Reports system reviewed and no additional complaints, except as docu Endocrine: Endocrine: Denies palpitations [facility] Social History Social History Household Members: Spouse Housing: House Do you presently have visiting nurse or other home services: No Alcohol intake: never Patient Tobacco Use Status: Never used Tobacco Smoked in Last 30 Days: No Use of substances other than those prescribed or required for medical reasons: No Currently Displaying Signs/Symptoms of Drug Intoxication Withdrawal: No Any prior treatment program specific to substance use: No Have you been hit, kicked, punched, or otherwise hurt by someone within the past year? If so, by whom?: No Do you feel safe in your current relationship?: Yes Is there a partner from a previous relationship who is making you feel unsafe now?: No Are you made to feel afraid or neglected: No Advance Directives: No Advance Directives Information Provided: No Advance Directives on File: No Do you have thoughts of harming others: None Do you have a plan to hurt others: No Plan Recently lost weight without trying: No How much weight loss: Not applicable Eating poorly because of decreased appetite: No Nutrition screen score: 0 Nutrition Risks: No Nutritional Risk Poor oral hygiene: No service: Yes Meds Allergies Allergy/AdvReac Type Severity Reaction Status Date / Time lisinopril Allergy Unknown skin rash Uncoded 06/05/23 18:21 Active Medications: Current Medications Acetaminophen (Acetaminophen 325 Mg Tablet) 650 mg PO Q6H PRN PRN Reason: Pain, Mild (Pain Scale 1-3) Aspirin (Aspirin Enteric Coated 81 Mg Tablet.) 81 mg PO DAILY [facility] Last Admin: 06/07/23 08:11 Dose: 81 mg Atorvastatin Calcium (Atorvastatin Calcium 40 Mg Tablet) 40 mg PO DAILY [facility] Last Admin: 06/07/23 08:11 Dose: 40 mg Clopidogrel Bisulfate (Clopidogrel Bisulfate 75 Mg Tablet) 75 mg PO DAILY [facility] Last Admin: 06/07/23 08:11 Dose: 75 mg Docusate Sodium (Docusate Sodium 100 Mg Capsule) 100 mg PO DAILY PRN PRN Reason: Constipation Enoxaparin Sodium (Enoxaparin Sodium 40 Mg/0.4 Ml Syringe) 40 mg SUBCUT Q24H [facility] Last Admin: 06/06/23 23:16 Dose: 40 mg Multi-Ingred Cream/Lotion/Oil/Oint (Mineral Oil/Petrolatum,White 106 Gm Tube) 1 appl TOPICAL DAILY [facility]; Protocol Last Admin: 06/07/23 08:31 Dose: 1 appl Ondansetron HCl (Ondansetron Hcl 4 Mg/2 Ml Vial) 4 mg IVPUSH Q8H PRN PRN Reason: Nausea and Vomiting Pharmacy Consult (Consult Rx Perform Med Rec) 1 each MISCELLANE ONCE PRN PRN Reason: Consult order Sodium Chloride (0.9 % Sodium Chloride Flush 3 Ml Syringe) 3 ml IVFLUSH QSHIFT [facility] Last Admin: 06/07/23 08:12 Dose: 3 ml Home Medications Medication Instructions Recorded Confirmed Last Taken Type aspirin 81 mg tablet,delayed 81 mg PO DAILY 05/19/23 06/05/23 Unknown History release (Adult Low Dose Aspirin) naproxen sodium 220 mg tablet 220 mg PO DAILY 06/05/23 06/05/23 Unknown History (Aleve) Physical Exam Vital Signs: Vital Signs: Last Vital Signs Temp 97.9 F 06/07/23 07:26 Pulse 70 06/07/23 07:26 Resp 20 06/07/23 07:26 BP 135/99 H 06/07/23 07:26 Pulse Ox 96 06/07/23 07:26 O2 Del Method Room Air 06/07/23 07:26 BMI result Body Mass Index 31.9 Const: General: cooperative, comfortable, no acute distress, alert and awake Nutritional Appearance: obese Orientation/consciousness: patient oriented x3 HEENT: Head: Yes normocephalic and Yes atraumatic Neck: Neck: Yes trachea midline, Yes supple and Yes no JVD Resp: Effort & Inspection: normal respiratory effort Auscultation: clear to auscultation bilaterally Cardio: Jugular venous distension: no JVD Palpation: normal PMI Rate: regular rate Rhythm: regular rhythm Heart sounds: S1 normal heart sound present, S2 normal heart sound present, no click, no gallops and Murmur heart sound present systolic early, decrescendo and crescendo Skin: General skin exam: no rashes or lesions noted Neuro: General: patient oriented x3 and no focal motor deficits Extrem: General: Yes no clubbing, cyanosis or edema Objective Labs and Meds 06/05/23 15:41 06/05/23 15:41 Lab results: EKG shows normal sinus rhythm with sinus arrhythmia with nonspecific ST T wave changes Assessment and Plan (1) Preoperative cardiovascular examination: Status: Acute Preoperative cardiovascular risk stratification this elderly gentleman with multiple risk factors for coronary artery disease with limited exercise capacity to undergo right carotid endarterectomy under general anesthesia considered intermediate risk surgery. He requires preoperative cardiovascular risk stratification with the myocardial perfusion imaging. Given his limited exercise capacity and right carotid stenosis will pursue to be remain myocardial perfusion imaging in near future. This can be done as soon as possible as outpatient. Importance of compliance with follow-up with regular primary care p hysician with this was discussed. Needs better blood pressure control target goal blood pressure less than 130/84. High-intensity statin therapy with atorvastatin 80 mg daily. Aspirin 81 mg daily. He has mild aortic stenosis which currently does not require any intervention but requires aggressive medical therapy as above. Will sign of the case and schedule follow-up patient stress test if patient is willing to follow here. Thank you for allowing me to partake in his care Time Spent With Patient Time: Total time managing care of this patient today ____ minutes. Procedures Date of Service Date of Service: 06/07/23
--- NOTE | 2023-06-07 13:29 | MHC.CM.PN ---
Pt medically cleared for D/C home with family support, pt has arranged for his own transport home.
== END 2023-06-07 13:23 | disposition home health service (06) | DRG 45 ==
LOC: HO.ED 17:19 → HO.EDOVER 18:41 → HO.IMC 19:28
PROVIDERS: Physician Assistant; Admitting Provider Student in an Organized Health Care Education/Training Program; Emergency Provider Emergency Medicine; PCP Internal Medicine; Visit Provider Internal Medicine
DX: I63.131 Cerebral infarction due to embolism of right carotid artery (principal); R47.01 Aphasia; I10 Essential (primary) hypertension; R29.700 NIHSS score 0; I16.0 Hypertensive urgency; I87.303 Chronic venous hypertension (idiopathic) without complications of bilateral lower extremity; Z79.82 Long term (current) use of aspirin; Z79.899 Other long term (current) drug therapy
CPT/HCPCS: 36415; 70450; 70496; 70498; 70551; 80048; 80061; 80076; 81003; 83735; 84484; 85025; 85610; 93005; 93306; 97162; 97166; 99285; J1650; Q9957; Q9967

== ENCOUNTER → 2023-06-05 18:15 | Outpatient (BNV) | payer OTHER, SELFPAY | PROVIDERS: Admitting Provider Student in an Organized Health Care Education/Training Program; Emergency Provider Emergency Medicine; Visit Provider Student in an Organized Health Care Education/Training Program | DX: I63.231 Cerebral infarction due to unspecified occlusion or stenosis of right carotid arteries (principal) | CPT/HCPCS: 99222; 99232; 99239 ==

== ENCOUNTER → 2023-06-06 07:00 | Outpatient (BNV) | payer OTHER, SELFPAY | PROVIDERS: Admitting Provider Student in an Organized Health Care Education/Training Program; Emergency Provider Emergency Medicine; Visit Provider Internal Medicine Cardiovascular Disease | DX: I35.0 Nonrheumatic aortic (valve) stenosis (principal) | CPT/HCPCS: 93306 ==

== ENCOUNTER → 2023-06-06 09:30 | Outpatient (BNV) | payer OTHER, SELFPAY | PROVIDERS: Admitting Provider Student in an Organized Health Care Education/Training Program; Emergency Provider Emergency Medicine; Visit Provider Surgery Vascular Surgery | DX: I63.231 Cerebral infarction due to unspecified occlusion or stenosis of right carotid arteries (principal) | CPT/HCPCS: 99222 ==

== ENCOUNTER → 2023-06-06 09:30 | Outpatient (BNV) | payer OTHER, SELFPAY | PROVIDERS: Admitting Provider Student in an Organized Health Care Education/Training Program; Emergency Provider Emergency Medicine; Visit Provider Internal Medicine Cardiovascular Disease | DX: Z01.810 Encounter for preprocedural cardiovascular examination (principal); I63.231 Cerebral infarction due to unspecified occlusion or stenosis of right carotid arteries | CPT/HCPCS: 99222 ==